=== PATIENT | female | born 1945 | race Caucasian/White ===

== ENCOUNTER → 2023-08-28 | Outpatient (CLI) | payer MEDICARE, BC, SELFPAY ==
[2023-08-28 12:40] LABS: Hematocrit 47.6 % (37-47); Hemoglobin 15.1 g/dL (12.0-15.0); Mean Corp Hgb Conc 31.7 g/dL (32-36); Mean Corpuscular Hgb 28.2 pg (27.0-32.0); Mean Platelet Vol. 10.8 fl (6.2-12.0); Platelet Count 384 K/mm3 (150-450); RBC Distribution Width CV 13.5 % (11.6-14.6); Red Blood Count 5.35 M/mm3 (4.2-5.4); White Blood Count 11.2 K/mm3 (4.4-11.0)
[2023-08-28 12:58] LABS: ALB/GLOB Ratio 0.9 RATIO (0.9-2.4); AST(SGOT) 34 U/L (15-37); Alanine Aminotransfer ALT/SGPT 39 U/L (13-56); Albumin, Serum 3.7 g/dL (3.2-5.0); Alkaline Phosphatase 111 U/L (45-117); Anion Gap 4 (5-15); BUN 14 mg/dL (7-18); BUN/Creat Ratio 19.2 RATIO (10-20); Calcium,Total 10.6 mg/dL (8.5-10.1); Chloride 107 mmol/L (98-107); Cholesterol 214 mg/dL (200); Creatinine, Serum 0.73 mg/dL (0.55-1.02); EST Glomerular Filtration Rate 81 mL/min (>60); Est Glom Filt Rate - Afr Amer 99 mL/min (>60); Globulin 4.1 g/dL (2.2-4.2); Glucose 95 mg/dL (74-106); High Density Lipoprotein 43 mg/dL; Protein, Total 7.8 g/dL (6.4-8.2); Sodium Level 139 mmol/L (136-145); Triglycerides 217 mg/dL; Very Low Density Lipoprotein 43 mg/dL (5-40)
== END | disposition home or self-care (01) ==
LOC: MTLAB 10:18
PROVIDERS: PCP Nurse Practitioner Family; Referring Provider Nurse Practitioner Family; Visit Provider Nurse Practitioner Family
DX: I10 Essential (primary) hypertension (principal); I77.1 Stricture of artery; E78.5 Hyperlipidemia, unspecified
CPT/HCPCS: 36415; 80053; 80061; 85027

== ENCOUNTER → 2023-11-06 | Outpatient (CLI) | payer MEDICARE, SELFPAY ==
[2023-11-06 13:20] LABS: Hemoglobin 11.4 g/dL (12.0-15.0)
== END | disposition home or self-care (01) ==
LOC: LAB 12:49
PROVIDERS: PCP Nurse Practitioner Family; Referring Provider Physician Assistant; Visit Provider Physician Assistant
DX: L97.514 Non-pressure chronic ulcer of other part of right foot with necrosis of bone (principal)
CPT/HCPCS: 36415; 85018

== ENCOUNTER 2023-11-16 13:46 | Outpatient (CLI) | payer MEDICARE, SELFPAY ==
--- NOTE | 2023-11-16 13:58 | VDLE_ITS ---
Reason For Study: Pre-Op BPG Mapping RIGHT LEFT GSV Prox Thigh - 0.27cm x 0.28cm GSV Prox Thigh - 0.26cm x 0.25cm GSV Mid Thigh - 0.24cm x 0.24cm GSV Mid Thigh - 0.30cm x 0.32cm GSV Dist Thigh - 0.36cm x 0.40cm GSV Dist Thigh - 0.29cm x 0.30cm GSV Knee - 0.38cm x 0.41cm GSV Knee - 0.20cm x 0.22cm GSV Prox Calf - 0.22cm x 0.25cm GSV Prox Calf - 0.29cm x 0.30cm GSV Mid Calf - 0.21cm x 0.24cm GSV Mid Calf - 0.11cm x 0.11cm GSV Dist Calf - 0.27cm x 0.35cm GSV Dist Calf - 0.10cm x 0.14cm ASV Prox Calf - 0.30cm x 0.32cm ASV Mid Calf - 0.27cm x 0.30cm ASV Mid Calf - 0.18cm x 0.20cm ASV Dist Calf - 0.28cm x 0.28cm SSV Prox Calf - 0.22cm x 0.22cm SSV Prox Calf - 0.14cm x 0.18cm SSV Mid Calf - 0.31cm x 0.34cm SSV Mid Calf - 0.14cm x 0.17cm SSV Dist Calf - 0.21cm x 0.23cm SSV Dist Calf - 0.17cm x 0.20cm GSV-SSV-ASV all appear patent and GSV-SSV-ASV all appear patent and compressible. compressible. VL/Saphenous Vein Mapping, Bilat Interpretation Summary Right great saphenous, accessory saphenous, and small saphenous veins patent wi th measurements above. Left great saphenous, accessory saphenous, and small saphenous veins patent wit h measurements above. Ordering Physician: Zoey Wong Referring Physician: Raudel Nance Performed By: Nuno Zhao RVT
--- NOTE | 2023-11-16 13:58 | ART_ITS ---
Reason For Study: RLE Ulcer Procedure A bilateral lower extremity continuous wave Doppler with analog waveform analysis,segmental pressures,and ankle brachial indexes without exercise. Left Segmental Pressures Left brachial= 150mmHg. Left thigh = 66mmHg. Left calf = 63mmHg. Left posterior tibial artery = 50mmHg. Left dorsalis pedis artery = 52mmHg. Left digit = 33 mmHg. The left posterior tibial artery waveforms are monophasic. The left dorsalis pedis waveforms are monophasic. Right Segmental Pressures Right brachial= 159mmHg. Right thigh = 105mmHg. Right calf = 70mmHg. Right posterior tibial artery = 76mmHg. Right dorsalis pedis artery = 69mmHg. No Pressure / Rt Toe Wound. The right posterior tibial artery waveforms are monophasic. The right dorsalis pedis waveforms are monophasic. Indices The right ankle brachial index by the posterior tibial artery is 0.48. The right ankle brachial index by the dorsalis pedis is 0.43. The left ankle brachial index by the posterior tibial artery is 0.31. The left ankle brachial index by the dorsalis pedis is 0.33. The left digital-brachial index is 0.21. VL/Lower Ext Art Exam w/o Exercis Interpretation Summary Right BRYNN 0.48, severe arterial insufficiency. Doppler/PVR waveforms and segmen flo pressures reveal [id number]-ixrac-cebhzcom femoral, distal SFA/popliteal disease. Left BRYNN 0.33, severe arterial insufficiency. Doppler/PVR waveforms and segment al pressures reveal lrurs-ctwdx-eajulptw femoral disease. Ordering Physician: Zoey Wong Referring Physician: Raudel Nance Performed By: Nuno Zhao RVT
--- NOTE | 2023-11-16 13:59 | CDU_ITS ---
Reason For Study: Bilateral Carotid Bruit Rt. Velocities/BP Lt. Velocities/BP Prox CCA 81.5/15.4 cm/sec. Prox CCA 76.0/21.2 cm/sec. Mid CCA 77.8/16.3 cm/sec. Mid CCA 76.0/21.2 cm/sec. Dist CCA 78.0/12.8 cm/sec. Dist CCA 53.5/18.5 cm/sec. Prox ICA 135.2/25.5 cm/sec. Prox ICA 83.1/20.4 cm/sec. Mid ICA 99.0/30.2 cm/sec. Mid ICA 125.3/37.6 cm/sec. Dist ICA 107.6/27.8 cm/sec. Dist ICA 123.5/30.3 cm/sec. Rt. ICA/CCA = 1.7. Lt. ICA/CCA = 1.6. Prox ECA 210.7/26.7 cm/sec. Prox ECA 434.5/86.4 cm/sec. Rt. Vert. 68.8/12.7 cm/sec. Lt. Vert. 179.6/31.9 cm/sec. Right Extracranial There is heterogeneous, irregular atherosclerotic plaque noted in the right common carotid artery. There is heterogeneous, irregular atherosclerotic plaque noted in the right internal carotid artery. There is heterogeneous, irregular atherosclerotic plaque noted in the right external carotid artery. Antegrade flow is noted in the right vertebral artery. Left Extracranial There is heterogeneous, irregular atherosclerotic plaque noted in the left common carotid artery. There is heterogeneous, irregular atherosclerotic plaque noted in the left internal carotid artery. There is heterogeneous, irregular atherosclerotic plaque noted in the left external carotid artery. Antegrade flow is noted in the left vertebral artery. The Doppler flow velocities are elevated in the left vertebral artery, suggesting stenosis. Procedure Carotid Duplex [id number]. This is a Carotid Duplex examination using B-mode, color flow and specral Doppler. The exam was diagnostic. Exam performed in department. VL/Carotid Duplex Ultrasound Interpretation Summary Moderate (50-69%) stenosis right extracranial internal carotid. Moderate (50-69%) stenosis left extracranial internal carotid. Patent and antegrade vertebrals bilaterally. Ordering Physician: Zoey Wong Referring Physician: Raudel Nance Performed By: Nuno Zhao RVT
== END 2023-11-16 23:59 | disposition home or self-care (01) ==
PROVIDERS: PCP Nurse Practitioner Family; Referring Provider Physician Assistant; Visit Provider Physician Assistant
DX: L97.514 Non-pressure chronic ulcer of other part of right foot with necrosis of bone (principal); R09.89 Other specified symptoms and signs involving the circulatory and respiratory systems; I77.9 Disorder of arteries and arterioles, unspecified; Z98.62 Peripheral vascular angioplasty status; M79.671 Pain in right foot
CPT/HCPCS: 93880; 93923; 93970

== ENCOUNTER → 2023-12-14 | Outpatient (CLI) | payer MEDICARE, SELFPAY ==
--- NOTE | 2023-12-14 08:46 | STRESSREP ---
Stress Test Report Date: 12/14/2023 Procedure: Pharmacologic stress nuclear imaging study Indications: Preop evaluation Consent: Per the patient Procedure: The patient underwent pharmacologic (Regadenoson 0.4mg ) evaluation with a peak heart rate of 90 beats per minute (64%predicted maximal heart rate) and a peak blood pressure of 110/60 mmHg. The baseline ECG demonstrated sinus rhythm. The peak pharmacologic ECG demonstrated no ischemic changes. Occasional PACs noted. [There was no complaint of chest discomfort during pharmacologic infusion or recovery]. The patient was injected with 11.2 millicuries of technetium 99m Cardiolite and subsequently rest SPECT Cardiolite nuclear imaging was obtained in the horizontal long, vertical long, and short axis views. The patient underwent pharmacologic (Regadenoson) evaluation. The patient was injected with 34.1 millicuries of technetium 99m Cardiolite and subsequently stress SPECT Cardiolite nuclear imaging was obtained in the horizontal long, vertical long, and short axis views. A gated Cardiolite study at peak stress was obtained. The examination was stopped secondary to completion of protocol. Rest and stress SPECT Cardiolite nuclear imaging status post realignment, normalization, and attenuation correction demonstrate no fixed or reversible perfusion defects. [There is end systolic thickening and brightening]. [The gated Cardiolite study demonstrates myocardial thickening and inward wall motion]. The reported LVEF is 80%. Impression: 1. Pharmacologic (Regadenoson) evaluation 2. Peak pharmacologic ECG with no ischemic changes. 3. No significant cardiac dysrhythmias noted. 5. [Rest and stress SPECT Cardiolite nuclear imaging demonstrate relative uniform tracer uptake and myocardial perfusion appearing within normal limits]. 6. The gated Cardiolite study reports an LVEF of 80%. This note was generated with [employer] software. It may contain incorrect words, spelling, and punctuation that were not noted in checking the note before signing.
== END | disposition home or self-care (01) ==
PROVIDERS: PCP Nurse Practitioner Family; Referring Provider Physician Assistant; Visit Provider Physician Assistant
DX: Z01.810 Encounter for preprocedural cardiovascular examination (principal); I70.235 Atherosclerosis of native arteries of right leg with ulceration of other part of foot; L97.514 Non-pressure chronic ulcer of other part of right foot with necrosis of bone; I77.9 Disorder of arteries and arterioles, unspecified
CPT/HCPCS: 78452; 93017; A9500; A4216; J2785

== ENCOUNTER 2024-01-14 12:16 | Inpatient (IN) | payer MEDICARE, SELFPAY ==
--- NOTE | 2024-01-10 10:19 | EKG12_ITS ---
Test Reason : PRE OP Blood Pressure : / mmHG Vent. Rate : 063 BPM Atrial Rate : 063 BPM P-R Int : 146 ms QRS Dur : 086 ms QT Int : 434 ms P-R-T Axes : 087 072 070 degrees QTc Int : 444 ms Normal sinus rhythm Normal ECG Confirmed by Moise Gonzalez ([id number]), editorial writer KATERIN RHODES ([id number]) on 01/14/2024 10:17:33 AM Referred By: Harris Saxena Confirmed By:Moise Gonzalez
[2024-01-10 11:38] LABS: Hematocrit 40.6 % (37-47); Hemoglobin 12.4 g/dL (12.0-15.0); Mean Corp Hgb Conc 30.5 g/dL (32-36); Mean Corpuscular Hgb 25.7 pg (27.0-32.0); Mean Corpuscular Volume 84.1 fL (81-99); Mean Platelet Vol. 11.6 fl (6.2-12.0); Platelet Count 329 K/mm3 (150-450); RBC Distribution Width CV 14.2 % (11.6-14.6); RBC Distribution Width SD 43.8 fl (35.1-43.9); Red Blood Count 4.83 M/mm3 (4.2-5.4); White Blood Count 7.8 K/mm3 (4.4-11.0)
[2024-01-10 12:03] LABS: Anion Gap 5 (5-15); BUN 14 mg/dL (7-18); BUN/Creat Ratio 21.3 RATIO (10-20); Calcium,Total 10.1 mg/dL (8.5-10.1); Chloride 110 mmol/L (98-107); Creatinine, Serum 0.66 mg/dL (0.55-1.02); EST Glomerular Filtration Rate 92 mL/min (>60); Est Glom Filt Rate - Afr Amer 111 mL/min (>60); Glucose 101 mg/dL (74-106); Potassium 3.5 mmol/L (3.5-5.1); Sodium Level 141 mmol/L (136-145)
[2024-01-11 08:27] LABS: Magnesium 2.3 mg/dL (1.6-2.6)
[2024-01-11 09:30] LABS: Hemoglobin A1c 5.9 % (3.8-5.6)
[2024-01-14] VITALS (25 sets, daily range): BP systolic 110–143; BP diastolic 45–99; PULSE 56–78; RESP 12–20; TEMP 36.1–36.6; O2SAT 95–100; BMI 15.6; BMI 16.0
--- NOTE | 2024-01-14 06:37 | PCM.PRE.AN2 ---
ASA Classification* ASA Classification ASA Classification: 3 Assessment & Plan Anesthesia* Anesthesia Assessment Anesthesia Assessment: Discussed sedation and/or anesthesia options, risks, benefits, and alternatives with patient/parents/legal guardian/POA. Questions invited. The patient/parents/legal guardian/POA seems to understand and agrees to proceed with anesthesia plan. Reviewed the physical assessment, medical history, allergy history and patient home medications list prior to surgery/procedure/anesthetic and documented any changes. Performed airway and anesthesia risk assessments. Anesthesia Type Anesthesia Type: General Anesthesia Focused Assessment* Airway Assessment Mouth opens: 2 cm Mallampati Score: II Focused Labs Anesthesia Preop lab: CBC WBC 7.8 K/mm3 (4.4-11.0) 01/10/24 10:37 RBC 4.83 M/mm3 (4.2-5.4) 01/10/24 10:37 Hgb 12.4 g/dL (12.0-15.0) 01/10/24 10:37 Hct 40.6 % (37-47) 01/10/24 10:37 Plt Count 329 K/mm3 (150-450) 01/10/24 10:37 CHEMISTRY Potassium 3.5 mmol/L (3.5-5.1) 01/10/24 10:37 Sodium 141 mmol/L (136-145) 01/10/24 10:37 Magnesium 2.3 mg/dL (1.6-2.6) 01/11/24 08:09 BUN 14 mg/dL (7-18) 01/10/24 10:37 Creatinine 0.66 mg/dL (0.55-1.02) 01/10/24 10:37 Glucose 101 mg/dL (74-106) 01/10/24 10:37 COAG Pre-Assessment Diagnosis/Proposed Procedure Planned Operative Procedure(s): RIGHT FEMEROL ENDARTERECTOMY FEM-POP BYPASS PER DR LOMAX RIGHT GREAT TOE AMPUTATION PER DR SHER Anesthesia History Anesthesia History - phlebotomy services representative: Anesthesia History - phlebotomy services representative Hx Hospitalization No 01/04/24 10:45 Any Problems With Anesthesia Yes: SLOW TO AWAKEN 01/04/24 10:45 Cholinesterase deficiency No 01/04/24 10:45 You/Your Family Experience No 01/04/24 10:45 fever (hyperthermia) with Relationship Recent Exposure to Contagious Disease Does patient have nerve No 01/04/24 10:45 stimulator Patient instructed to have device shut off --Does patient have Pacemaker or ICD? When Was Last Pacemaker Check QUESTION #4 FULL TEXT: You/Your Family Experience fever (hyperthermia) with Anesthesia Last Oral Intake Last Oral intake: Last Oral Intake NPO since Meds taken in AM with sips of water? Meds patient instructed to take am of surgery PONV PONV - phlebotomy services representative: PONV - phlebotomy services representative Female Yes 01/04/24 10:45 HX of Motion Sickness No 01/04/24 10:45 HX of N/V After Surgery No 01/04/24 10:45 Non-Smoker Yes 01/04/24 10:45 Duration of Surgery greater Yes 01/04/24 10:45 than 60 minutes Number of Risk Factors 3 01/04/24 10:45 PONV Score Moderate Risk 01/04/24 10:45 Respiratory Assessment Respiratory Assessment - phlebotomy services representative: Respiratory Tract Infection Hx - phlebotomy services representative Hx Respiratory Tract Infection No 01/04/24 10:45 STOP Sleep Apnea STOP Sleep Apnea - phlebotomy services representative: STOP Sleep Apnea - phlebotomy services representative Hx Hypertension No: PATIENT STATE 01/04/24 10:45 HYPOTENSION Hx Sleep Apnea No 01/04/24 10:45 CPAP BIPAP Do you snore loudly (louder No 01/04/24 10:45 than talking or can be heard Do you often feel tired/ Yes 01/04/24 10:45 fatigued/ sleepy during daytime? Has anyone observed you stop No 01/04/24 10:45 breathing during sleep? STOP Results Negative 01/04/24 10:45 QUESTION #5 FULL TEXT : Do you snore loudly (louder than talking or can be heard through closed doors)? 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 Specify any problems Hx of Preganancy in last 3 No 01/04/24 10:45 Months Nurse Filling Out Transfusion DSCHRIBER 01/04/24 10:45 & Questions: Date: 01/04/24 01/04/24 10:45 Time: 10:48 01/04/24 10:45 Patient unable to answer at this time (ie. confused, unrespo /Reproduction History /Reproductive History - phlebotomy services representative: /Reproductive Hx- phlebotomy services representative Hx Now No 01/04/24 10:45 Gestational Age (in weeks): EDC: Hx Hx Para Hx Section SAB No 01/04/24 10:45 Active Medications Active Medications: Current Medications Generic Name Dose Route Start Last Admin Trade Name Freq PRN Reason Stop Dose Admin Cefazolin Sodium 2 gm/ Sodium 110 mls @ 150 mls/hr 01/14/24 07:30 Chloride IV 01/14/24 08:13 PREOP ONE Magnesium Sulfate 1 gm/ 102 mls @ 408 mls/hr 01/14/24 07:30 Dextrose IV 01/14/24 07:44 X1 ONE [facility] Medical History Wears glasses Post-menopausal Blackout Former smoker Leg cramps History of stress test Breast CA (~2003) Home Medications ?Medication ?Instructions ?Recorded ?Last Taken ?Type aspirin 81 mg tablet,delayed 81 mg PO DAILY HEART HEALTH 11/05/23 01/14/24 03:00 History release clopidogrel 75 mg tablet (Plavix) 75 mg PO DAILY BLOOD THINNER 11/05/23 01/14/24 03:00 History ramipril 5 mg tablet 5 mg PO 1545 BP 11/05/23 01/13/24 History rosuvastatin 5 mg tablet 5 mg PO 1545 CHOLESTEROL 11/05/23 01/13/24 History Allergy/AdvReac Type Severity Reaction Status Date / Time Sulfa (Sulfonamide Allergy Severe Swelling Verified 01/14/24 06:14 Antibiotics) (sulfa drugs) Family History Other Cancer Heart disease Surgical History Hx of colonoscopy Hx of tubal ligation History of lumpectomy of left breast Hx of cholecystectomy Social History Smoking Status: Former smoker Tobacco: How many years used: 35 Review of Systems (Anesthesia) ROS Narrative System reviewed and no additional complaints, except as documented.
[2024-01-14] MEDS: Lactated Ringers 1,000 ML 15 ML IV (06:52)
[2024-01-14] MEDS: Magnesium 1 GM over 15 mins IV (07:04)
--- NOTE | 2024-01-14 07:10 | HP.PCM_ITS ---
HPI - General General Date of Admission: 01/14/24 Date of Service: 01/14/24 Chief Complaint: Right hallux osteomyelitis HPI Narrative VAUGHN CLINE, is a 78 F who presents to [facility] for surgery consisting of incision of bone cortex with advancement flap closure secondary to osteomyelitis to the right hallux. Patient also be seen by vascular surgery for intervention to the right lower extremity due to peripheral vascular disease and blockage in her primary arteries to the lower extremity. Patient has been cleared by her medical doctor as well as understands the risk and benefits wound forward with elective surgery to the right lower extremity. Patient denies any trauma. She denies constitutional symptoms. No other pedal complaints at this time. [facility] Medical History Wears glasses Post-menopausal Blackout Former smoker Leg cramps History of stress test Breast CA (~2003) Home Medications ?Medication ?Instructions ?Recorded ?Last Taken ?Type aspirin 81 mg tablet,delayed 81 mg PO DAILY HEART HEALTH 11/05/23 01/14/24 03:00 History release clopidogrel 75 mg tablet (Plavix) 75 mg PO DAILY BLOOD THINNER 11/05/23 01/14/24 03:00 History ramipril 5 mg tablet 5 mg PO 1545 BP 11/05/23 01/13/24 History rosuvastatin 5 mg tablet 5 mg PO 1545 CHOLESTEROL 11/05/23 01/13/24 History Allergy/AdvReac Type Severity Reaction Status Date / Time Sulfa (Sulfonamide Allergy Severe Swelling Verified 01/14/24 06:14 Antibiotics) (sulfa drugs) Family History Other Cancer Heart disease Surgical History Hx of colonoscopy Hx of tubal ligation History of lumpectomy of left breast Hx of cholecystectomy Social History Smoking Status: Former smoker Tobacco: How many years used: 35 Vital Signs Vital Signs Vital Signs: 01/14/24 06:10 01/14/24 06:10 Temperature 97 F L Temperature Source Temporal Pulse Rate 78 Respiratory Rate 16 Respiratory Pattern Normal Blood Pressure 131/50 H Blood Pressure Mean 77 Blood Pressure Source Monitor Blood Pressure Position Semi-Fowlers Blood Pressure Location Right Arm Pulse Ox 100 Oxygen Delivery Method Room Air Weight Weight: 44 kg Body Mass Index (BMI) 15.6 Physical Exam Narrative Vascular: DP and PT pulses right lower extremity are faintly palpable. Capillary refill time is brisk. Skin temp great is warm to cool from proximal ankle to distal digits right lower extremity. Nonpitting edema appreciated right lower extremity. Neurological. Light touch intact. Patient was found to painful stimuli. Dermatological: Full-thickness wound down to bone to the right hallux nail bed. No drainage or malodor. Musculoskeletal: Muscle joint 5 and 5 in all quadrants right lower extremity. Pain on palpation to the right hallux. No pain with calf pressure. 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 All findings were discussed with the patient. All questions were answered to the patient's satisfaction. Patient shows evidence of nonhealing wound to the right hallux with exposed bone with concerns of osteomyelitis. Patient is cleared from podiatry perspective to move forward with elective incision of bone cortex with advancement flap closure to the right hallux, right lower extremity. Patient understands all risk and benefits. Patient will also be seen by vascular surgery for intervention to the right lower extremity. Plan for admission after surgery will be up to vascular surgery. Podiatry will follow if the patient is admitted. After surgery the right lower extremity foot dressing is to remain clean dry and intact and do not remove do not get it wet. Please contact Dr. Taylor with any questions or concerns. (2) Chronic osteomyelitis with draining sinus, right ankle and foot:
[2024-01-14 07:14] LABS: Bedside Glucose 70 mg/dL (74-106)
--- NOTE | 2024-01-14 07:30 | BON_PTH ---
PATIENT: VAUGHN CLINE LOC: [facility] U#:[id number] AGE/SX: 78/F ROOM: [facility]08 RE01/14/[address]: Dr. Harris Saxena MD : [id number] BED: 1 DIS: 01/15/2024 SPEC #: [id number] RECD: 01/15/24 08:51 STATUS: LEROY RECain #: [id number] JONEL: 01/14/24 07:[address]: Harris Saxena DEPT: SURGICAL PATHOLOGY RECD BY: Asuncion Corona ENTERED: 01/15/24 10:46 SP TYPE: Bone OTHR DR: Dr. 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 Bone cortex right foot, excisional biopsy: A piece of bone with marked reactive changes. Negative for acute osteomyelitis. B. Plaque, endarterectomy: Atherosclerotic tissue with moderate calcifications (plaque). 01/17/2024 MICROSCOPIC DESCRIPTION Slides are reviewed. GROSS DESCRIPTION A. Received in fixative is one container labeled with the patient's name and designated Incision bone cortex right foot. The specimen consists of a piece of bone measuring 1.5 x 0.6 x 0.5cm. The entire specimen is submitted in one cassette after decalcification. B. Received in fixative is one container labeled with the patient's name and designated Plaque. The specimen consists of an elongated piece of landeros indurated tissue measuring 2.0 x 0.5 x 0.4cm. Also present are multiple pieces of landeros indurated tissue measuring in aggregate 1.5 x 0.5 x 0.3cm. The specimen cuts with a gritty sensation. The entire specimen is submitted in one cassette after decalcification. REBALu 01/15/2024 TC:5 CPT:56713,50553
--- NOTE | 2024-01-14 07:31 | PCM.HP.STD ---
[facility] - General General Date of Admission: 01/14/24 Chief Complaint: Right hallux osteomyelitis HPI Narrative VAUGHN CLINE, is a 78 F who presents with right lower extremity atherosclerosis with gangrene, prior right iliac/femoral intervention at outside facility. She has chronic SFA/popliteal occlusion and perfusion that may not be sufficient to heal planned amputation. [facility] Medical History Wears glasses Post-menopausal Blackout Former smoker Leg cramps History of stress test Breast CA (~2003) Home Medications ?Medication ?Instructions ?Recorded ?Last Taken ?Type aspirin 81 mg tablet,delayed 81 mg PO DAILY HEART HEALTH 11/05/23 01/14/24 03:00 History release clopidogrel 75 mg tablet (Plavix) 75 mg PO DAILY BLOOD THINNER 11/05/23 01/14/24 03:00 History ramipril 5 mg tablet 5 mg PO 1545 BP 11/05/23 01/13/24 History rosuvastatin 5 mg tablet 5 mg PO 1545 CHOLESTEROL 11/05/23 01/13/24 History Allergy/AdvReac Type Severity Reaction Status Date / Time Sulfa (Sulfonamide Allergy Severe Swelling Verified 01/14/24 06:14 Antibiotics) (sulfa drugs) Family History Other Cancer Heart disease Surgical History Hx of colonoscopy Hx of tubal ligation History of lumpectomy of left breast Hx of cholecystectomy Social History Smoking Status: Former smoker Tobacco: How many years used: 35 ROS Constitutional Constitutional: Denies chills, fever(s), frequent falls, lethargy or weakness Eyes Eyes: Denies blind spots, change in vision or loss of vision ENT HEENT: Denies bleeding gums, hoarseness or sore throat Cardiovascular Cardiovascular: Denies abdominal pain, bluish discoloration of hand/feet, chest pain with activity, claudication, cold extremities, cyanosis, dyspnea on exertion, erythema on extremities, irregular heart rhythm, leg edema, leg ulcers, numbness in extremities or weakness in extremities Respiratory/Chest Respiratory/Chest: Denies cough, excessive phlegm production, shortness of breath at rest, shortness of breath with exertion or wheezing Gastrointestinal Gastrointestinal: Denies anorexia, change in stool character, constipation, diarrhea, melena or rectal bleeding Genitourinary Genitourinary: Denies dysuria or hematuria Musculoskeletal Musculoskeletal: Denies abnormal gait Integumentary Integumentary: Reports other Details: ; Denies erythema, non-healing lesions or wounds Neurologic Neurologic: Denies abnormal speech, focal weakness, headache(s), loss of vision, numbness, paresthesias or sensory deficit Hematologic/Lymphatic Hematologic/Lymphatic: Denies easy bleeding, easy bruising or lymphadenopathy Vital Signs Vital Signs Vital Signs: 01/14/24 06:10 01/14/24 06:10 Temperature 97 F L Temperature Source Temporal Pulse Rate 78 Respiratory Rate 16 Respiratory Pattern Normal Blood Pressure 131/50 H Blood Pressure Mean 77 Blood Pressure Source Monitor Blood Pressure Position Semi-Fowlers Blood Pressure Location Right Arm Pulse Ox 100 Oxygen Delivery Method Room Air Weight Weight: 97 lb 0.054 oz Body Mass Index (BMI) 15.6 Physical Exam Const alert, oriented x3, no apparent distress and healthy appearing General Appearance: cooperative; Negative for combative or lethargic Orientation / Consciousness: awake Exam Limitations: no limitations HEENT Head and Scalp: normocephalic and atraumatic Eyes EOMs intact bilaterally General Eye: normal appearance of both eyes Neck full ROM and thyroid normal General: trachea midline; Negative for lymphadenopathy or tenderness Thyroid: thyroid normal Resp normal respiratory effort and no use of accessory muscles Effort and Inspection: Negative for labored, stridor or audible wheezes Cardio regular rate and regular rhythm Back/Spine Cervical Spine: cervical ROM normal Extremity full ROM, normal capillary refill and no clubbing, cyanosis or edema Skin no rashes or lesions noted and no wounds Neuro oriented x3, CN's II-XII intact bilaterally, no focal motor deficits and no sensory deficits noted Psych thought process normal, cooperative, affect normal, speech normal and activity/motor behavior normal Results Lab / Micro Data 01/10/24 10:37 01/10/24 10:37 Labs: Laboratory Results - last 24 hr 01/14/24 06:32: POC Glucose 70 L Assessment & Plan Assessment/Plan (1) Atherosclerosis of [place] arteries of right leg with ulceration of other part of foot: PLAN: -plan right fem-pop with cadaver, sartorius
--- NOTE | 2024-01-14 07:32 | OP.PCM_ITS ---
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 Osteomyelitis, right hallux 2. Full-thickness ulceration down to bone, right hallux Post-Operative Diagnosis: Same as preoperative diagnosis Surgery/Procedure Performed:: 1. Incision bone cortex, right hallux 2. Advancement flap closure, right hallux Description of Surgical Findings:: 1. Evidence of periosteal action to the distal tuft of the distal phalanx right hallux. 2. Capillary refill time less than 3 seconds to the right hallux stump. Surgeon: Derek Taylor reed press feeder: None Type of Anesthesia: General and Local Anesthesiologist: Steven Mendosa Special Medications: Per anesthesia Specimen's removed: 1. Distal phalanx right hallux half to microbiology, half to pathology Drains: None Estimated Blood Loss (mL): 10 mL Fluids Replaced: Per anesthesia Description of Procedure: Indications For Operation: Mrs. Mitcehll is a 78-year-old female who was admitted to [facility] for elective surgery to the right hallux for concerns of worsening osteomyelitis and nonhealing ulceration. Patient also be seen by vascular surgeon for intervention to the right lower extremity secondary to decreased perfusion as seen on CTA. All risk and benefits were discussed with the patient great detail prior to surgery. Chart review consent signed. H&P and chart. Due to nonhealing wound to right hallux and concern for bone infection, it had deemed necessary at this time to take patient operating room to perform incision bone cortex with [place] flap closure to the right hallux, then team approach with vascular surgery intervention to right lower extremity. The nature of the problem, anticipated procedures, postop recovery/convalences and risk/complications include but not limited to infection, wound healing complications, digital amputation, hypertrophic scarring, numbness, tingling, chronic pain, CRPS, over and under correction, recurrence of deformity, DVT and or PE and the need for further surgery have been discussed in great detail with the patient. All questions have been answered to the patient's satisfaction. There are no guarantees given as to the outcome of the procedure. Description of Procedure: Under mild sedation, the patient was brought into the operating room and placed on the operating table in supine position. Once the patient was under general anesthesia with [place] mask airway, the right lower extremity was blocked using approximately 17 cc0.5% Marcaine plain. Next, a well-padded calf tourniquet was applied to the right lower extremity. Next, the right lower extremity was prepped and draped in normal aseptic manner. Next, a timeout was then undertaken verifying the correct patient, extremity, visibility of preoperative markings, availability of the equipment. Next, attention was directed to the right lower extremity. Using a 4 inches Esmarch, right lower extremity was exsanguinated and elevated to 60 degrees for 1 minute. Procedure #1: Incision of bone cortex, right hallux Next, attention was directed to the level of the right hallux the right lower extremity. Using a sterile skin marker a fish[place] trapdoor incision was marked out around the toenail that showed evidence of a full-thickness wound down to bone. There is no evidence of gross purulent drainage appreciated. Next, using a #15 blade full-thickness incision down to bone was performed along the incision marker. Care was taken to lift up with the soft tissue to remove it sharply against the distal phalanx. Upon removing all the soft tissue there showed evidence of p.o. reaction appreciated to the distal tuft of the right hallux. Next, incision bone cortex was performed removing the distal phalanx of the right hallux. The distal phalanx was evaluated that showed evidence of periosteal reaction and softening. Using a bone cutter half of the bone was removed to be sent to microbiology for culture and sensitivity, the other half was sent off to pathology for gross dissection. Next, the incision/amputation was flushed with copious hector of warm saline. At this time the right calf tourniquet was deflated and reperfusion was noted to the right lower extremity. Procedure #2: Advancement flap closure, right hallux Next, attention was directed to the incision and bone deficit. The surrounding tissue was undermined to allow for advancement flap closure. Using 4-0 Monocryl, the deep tissue was advanced and closed with buried suture technique. The skin was reapproximated and closed using 4-0 nylon in simple interrupted suture technique. Capillary refill time was tested at the distal tuft and showed evidence of less than 3 seconds in refill time. The right lower extremities were cleaned and patted dry. The incision was dressed temporarily with Betadine soaked Adaptic, 4 x 4's and Coban wrap. After completion of the right lower extremity vascular intervention the right hallux will be dressed with Betadine soaked Adaptic, 4 x 4's, Kerlix wrap, single-layer cast padding and one 4 inch Adan wrap from sulcus of toes to mid calf. The patient tolerated the procedure and anesthesia well and apparent satisfactory condition and was transported to the PACU for further monitoring prior to discharge ICU after vascular surgery for monitoring. Vital signs stable and vascular status intact to all digits bilateral. Post Operative Plan: Weightbearing: Partial weightbearing to right heel with surgical shoe. Full weightbearing left lower extremity. Antibiotics: 2 g Ancef through the IV DVT Prophylaxis: Per vascular surgery Busch: None Dressing: Betadine soaked Adaptic, 4 x 4's, Kerlix, single layer Starks compression bandage X-Rays: Post-operative films taken on the operating room. Pain Medication: Percocet 5/325 Follow-up: Patient will follow-up with Dr. Taylor in private office 1 week post discharge from hospital. Grafts/Implants Used: None Admit VTE Documentation VTE Present on Admission: No VTE Mechan Device Prophylaxis: SCD's VTE Pharm Prophylaxis ordered?: Yes
[2024-01-14] MEDS: Cefazolin 2 GM in 0.9% Normal Saline (100mL Bag) 100 ML IV (07:36)
--- NOTE | 2024-01-14 07:44 | RAD_ITS ---
STUDY: X-RAY - RIGHT FOOT CLINICAL: Female, 78 years old. INCISION BONE CORTEX RIGHT HALLUX -- MINI C TECHNIQUE: A fluoroscopic spot film of the right forefoot was obtained. COMPARISON: None. FINDINGS: Normal visualized metatarsi. Normal metatarsophalangeal joint of the great toe. Normal proximal phalanx of the great toe. There is amputation of the distal phalanx of the great toe at the level of the interphalangeal joint. Normal second through fifth metatarsophalangeal joints. Normal interphalangeal joints and phalanges of the lesser toes. There is mild soft tissue swelling of the great toe stump. RAD/Foot 2 Views IMPRESSION: Amputation of the distal phalanx of the great toe at the level of the interphalangeal joint. Mild soft tissue swelling of the great toe stump. Electronically Signed: Catalino Solomon MD at 8:50 EDT ,
[2024-01-14] MEDS: Heparin 10,000 UNITS/10 ML Vial 10000 UNITS (07:57)
[2024-01-14] MEDS: Bupivacaine Mpf 0.5% 30 ML VIAL (07:57)
[2024-01-14 08:29] LABS: International Normalized Ratio 1.1; Prothrombin Time (Protime)PT. 14.1 SECONDS (11.7-14.9)
[2024-01-14 08:31] LABS: Partial Thromboplast Time 28.2 Seconds (24.1-36.2)
[2024-01-14] MEDS: Heparin Injection (Vial) 5,000 UNIT/ML VIAL 5000 UNIT (08:41)
--- NOTE | 2024-01-14 12:21 | OP.PCM_ITS ---
Report of Operation Date of Procedure: 01/14/24 Pre-Operative Diagnosis: atherosclerosis with gangrene right lower extremity Post-Operative Diagnosis: same Surgery/Procedure Performed:: right common femoral endarterectomy right femoral-popliteal bypass with cadaver GSV Surgeon: Harris Saxena Type of Anesthesia: General Estimated Blood Loss (mL): 50 Description of Procedure: HPI: Patient is a 28-year-old female with atherosclerosis and gangrene of the right lower extremity. She previously underwent right iliac artery intervention outside facility which significantly improved her perfusion however she went on to develop a gangrenous right great toe. In order to ensure adequate perfusion for healing of a planned toe amputation she presents now for combined right femoral popliteal bypass along with toe amputation. Description of procedure: Upon obtaining form consent and verification correct patient procedure site patient was taken to the operating where she was placed under general anesthesia. Dr. Taylor performed timeout and this portion of the procedure and upon completion the patient was re-prepped and draped in usual sterile fashion and timeout for the bypass procedure performed. Oblique incision was made over the right common femoral artery and Bovie electrocautery was dissect down through the subcutaneous tissue and self-retaining retractors p ut in position. Further dissection was carried down to the femoral sheath which was then incised vertically exposing the common femoral artery. Sharp dissection was used dissect free proximally above the inguinal ligament to the distal external iliac artery and a right angle was replaced vessel loop. The dissection then carried distally down on the origin of the superficial femoral artery and the profundofemoral artery and a right angle was placed Vesseloops around each of these individually. Next longitudinal incision made on the medial aspect of the calf 2 fingerbreadths medial to the tibia. Bovie electrocautery used to dissect down through subcutaneous tissue to level the fascia and the fascia was then incised and self-retaining retractor put in position. Combination of Bovie and blunt dissection was then used to dissect to the popliteal space once the popliteal vessels were visualized sharp dissection used dissect free the distal popliteal artery down onto the tibioperoneal trunk and anterior tibial artery origins. Vessels were then circumferentially dissected free and a right angle replaced vessel loop on the proximal popliteal artery and around the TP trunk and anterior tibial artery individually. A tunneler was then used from the popliteal incision to the femoral incision and the patient was then heparinized and allowed circulate for 3 minutes. There is significant amount of plaque and disease in the common femoral artery which we felt would likely require an endarterectomy. Vessels were then occluded with Vesseloops and longitudinal arteriotomy created with 11 blade and extended with Jim scissors. There was in fact significant posterior plaque with significant luminal narrowing so an endarterectomy was warranted so a modifier 22 was applied for the additional operative time of approximately 1 hour. We then performed endarterectomy with a freer elevator with satisfactory endpoint distally down to the origin of the profundofemoral artery and proximal at the distal external iliac artery. A bovine pericardial patch was then secured in position using 5-0 Prolene in running fashion. After completing suture line vessels were released and satisfactory stasis was noted. Cadaver saphenous vein was then thawed per spindle carver's instructions and flushed to assess for sidebranch integrity. The common femoral artery was then occluded and longitu dinal arteriotomy created and the patch and extended with Jim scissors. The vein was then oriented in reverse fashion and beveled to match the arteriotomy. Anastomosis was then performed using 6-0 Prolene in running fashion. After completing the suture line vessels were flushed into the graft and then clamps removed. Satisfactory stasis was noted and there is brisk pulsatile flow through the bypass conduit. The vein was then marked to maintain orientation and secured to the tunneler and pulled through the popliteal incision. The popliteal artery was then occluded with Vesseloops and longitudinal arteriotomy created 11 blade extended with Jim scissors down onto the proximal portion of the tibioperoneal trunk. There was some palpable plaque at the distal popliteal artery which was concerning for possible significant stenosis however this did not appear to be so once the vessel was opened. The vein was then cut the length and beveled to match the arteriotomy and anastomosis performed using a 6- 0 Prolene in a running fashion. Prior to clean the suture line vessels were backbled and after completing suture line clamps removed and satisfactory stasis was noted. There is a palpable pulse in the graft and across the anastomosis primarily into the anterior tibial artery which is dominant outflow. Heparin was then reversed with protamine and the incision inspected hemostasis. Attention was then turned to the sartorius muscle which was dissected free with Bovie up to the insertion into the anterior superior iliac spine and along its lateral edge. The insertion was then divided between the muscle reflected medially to cover the common femoral artery, patch, and proximal anastomosis. This was then secured in position using a 2-0 Vicryl and the incision closed with 3-0 Vicryl, 4 Monocryl and Dermabond for the skin. The distal incision was then closed with 2-0 Vicryl, 3-0 Vicryl, 4-0 Monocryl and Dermabond. The patient was then taken the recovery with anticipated mission to the intensive care unit for hemodynamic and neurologic monitoring.
--- NOTE | 2024-01-14 12:42 | PCM.POST.ANE ---
Anesthesia: Postop Eval I Current Vital Signs Temperature: 98 F Pulse Rate: 68 Blood Pressure: 136/62 Respiratory Rate: 16 Pulse Ox: 99 Oxygen Delivery Method: Room Air Assessment Airway patent: Yes Spontaneous unlabored respirations: Yes Mental status: Awake and Calm nausea: No Vomiting: No Anesthesia Complication: No Fluid Hydration Crystalloid volume administer (ml): 2,000 Total IV fluid infused: 2,000 Progress Note Anesthesia document: Postop Eval 1 completed: Yes
[2024-01-14] MEDS: 0.45% Normal Saline 1,000 ML 100 ML IV (14:59)
[2024-01-14] MEDS: Acetaminophen 500 MG Tablet 1000 MG PO ×2 (15:02→20:56)
[2024-01-14] MEDS: Cefazolin 1 GM/50 ML BAG IV ×2 (15:20→23:45)
[2024-01-14] MEDS: Atorvastatin Calcium 10 MG Tablet PO (15:23)
[2024-01-14] MEDS: Ramipril 5 MG Capsule PO (15:23)
--- NOTE | 2024-01-14 15:58 | POSTOPAN2_ITS ---
Anesthesia Postop Eval I Sum Postop Eval Completion status Anesthesia document: Postop Eval 1 completed: Yes Anesthesia Postop Eval I Summary Anesthesia Postop Eval I Summary: Anesthesia Postop Eval I: Assessment Summary Airway patent Yes 01/14/24 12:43 [email or web address] [email or web address] [email or web address] Spontaneous unlabored Yes 01/14/24 12:43 WINDOW [email or web address] [email or web address] respirations Mental status Awake,Calm 01/14/24 12:43 WINDOW [email or web address] [email or web address] nausea No 01/14/24 12:43 WINDOW SHADE [email or web address] Vomiting No 01/14/24 12:43 WINDOW [email or web address] [email or web address] Anesthesia Postop Eval I: Fluid Summary Crystalloid volume administer 2,000 01/14/24 12:43 WINDOW [email or web address] [email or web address] (ml) Colloids volume administered ( ml) Blood Product volume administered (ml) Total IV fluid infused 2,000 01/14/24 12:43 WINDOW SHADE [email or web address] Anesthesia Postop Eval I: Summary Notes Anesthesia Complication No 01/14/24 12:43 WINDOW SHADE [email or web address].SEAN Anesthesia Complication Comment: Post-operative progress note Anesthesia: Postop Eval II Evaluation Mental status: Awake and Calm Pain Level: 1 nausea: No Vomiting: No Complications Anesthesia Complication: No
--- NOTE | 2024-01-14 15:58 | PCM.POSTANE2 ---
Anesthesia Postop Eval I Sum Postop Eval Completion status Anesthesia document: Postop Eval 1 completed: Yes Anesthesia Postop Eval I Summary Anesthesia Postop Eval I Summary: Anesthesia Postop Eval I: Assessment Summary Airway patent Yes 01/14/24 12:43 [email or web address] [email or web address] Spontaneous unlabored Yes 01/14/24 12:43 FAMILY [email or web address] respirations Mental status Awake,Calm 01/14/24 12:43 FAMILY [email or web address] nausea No 01/14/24 12:43 FAMILY NURSE.[email or web address] Vomiting No 01/14/24 12:43 FAMILY [email or web address] Anesthesia Postop Eval I: Fluid Summary Crystalloid volume administer 2,000 01/14/24 12:43 [email or web address] (ml) Colloids volume administered ( ml) Blood Product volume administered (ml) Total IV fluid infused 2,000 01/14/24 12:43 FAMILY [email or web address] Anesthesia Postop Eval I: Summary Notes Anesthesia Complication No 01/14/24 12:43 FAMILY [email or web address].SEAN Anesthesia Complication Comment: Post-operative progress note Anesthesia: Postop Eval II Evaluation Mental status: Awake and Calm Pain Level: 1 nausea: No Vomiting: No Complications Anesthesia Complication: No
[2024-01-14 18:38] LABS: Absolute Lymphocyte Count 0.89 X10^3/uL (0.83-4.51); Basophil# 0.05 X10^3/uL; Basophil% 0.3 % (0-1); Hematocrit 34.6 % (37-47); Hemoglobin 10.8 g/dL (12.0-15.0); Lymphocyte # 0.89 X10^3/ul (0.83-4.51); Lymphocyte % 5.1 % (19-41); Mean Corp Hgb Conc 31.2 g/dL (32-36); Mean Corpuscular Hgb 26.2 pg (27.0-32.0); Mean Platelet Vol. 11.4 fl (6.2-12.0); Monocyte# 0.45 X10^3/uL; Monocyte% 2.6 % (0-10); NRBC Flagged by Analyzer 0 % (0-5); Neutrophil # 15.98 X10^3/uL (2.7-7.7); Neutrophil % 91.5 % (47-70); Platelet Count 295 K/mm3 (150-450); RBC Distribution Width CV 14.3 % (11.6-14.6); RBC Distribution Width SD 43.6 fl (35.1-43.9); Red Blood Count 4.12 M/mm3 (4.2-5.4); White Blood Count 17.5 K/mm3 (4.4-11.0)
[2024-01-14] MEDS: HEPARIN/D5w 25,000 UNITS 25,000 UNITS/250 ML IV.SOLN. 3 UNITS CONT INF (18:41)
[2024-01-15] VITALS (18 sets, daily range): BP systolic 100–156; BP diastolic 45–69; PULSE 57–73; RESP 12–25; TEMP 36.3–36.9; O2SAT 94–98; BMI 16.4
[2024-01-15] MEDS: 0.45% Normal Saline 1,000 ML 100 ML IV ×2 (00:58→10:35)
[2024-01-15 03:29] LABS: Absolute Lymphocyte Count 1.36 X10^3/uL (0.83-4.51); Absolute Neutrophil Count 13.2 X10^3/uL (2.0-7.7); Basophil# 0.04 X10^3/uL; Basophil% 0.3 % (0-1); Hematocrit 32.2 % (37-47); Hemoglobin 9.9 g/dL (12.0-15.0); Lymphocyte # 1.36 X10^3/ul (0.83-4.51); Lymphocyte % 8.6 % (19-41); Mean Corp Hgb Conc 30.7 g/dL (32-36); Mean Corpuscular Hgb 25.8 pg (27.0-32.0); Mean Corpuscular Volume 83.9 fL (81-99); Mean Platelet Vol. 11.5 fl (6.2-12.0); Monocyte# 1.11 X10^3/uL; NRBC Flagged by Analyzer 0 % (0-5); Neutrophil % 83.5 % (47-70); Platelet Count 268 K/mm3 (150-450); RBC Distribution Width CV 14.3 % (11.6-14.6); RBC Distribution Width SD 43.7 fl (35.1-43.9); Red Blood Count 3.84 M/mm3 (4.2-5.4); White Blood Count 15.8 K/mm3 (4.4-11.0)
[2024-01-15 03:44] LABS: Anion Gap 5 (5-15); BUN 12 mg/dL (7-18); BUN/Creat Ratio 18.6 RATIO (10-20); Calcium,Total 9.6 mg/dL (8.5-10.1); Chloride 111 mmol/L (98-107); Creatinine, Serum 0.64 mg/dL (0.55-1.02); EST Glomerular Filtration Rate 94 mL/min (>60); Est Glom Filt Rate - Afr Amer 114 mL/min (>60); Glucose 129 mg/dL (74-106); Potassium 4.3 mmol/L (3.5-5.1); Sodium Level 140 mmol/L (136-145)
[2024-01-15] MEDS: Acetaminophen 500 MG Tablet 1000 MG PO ×2 (05:33→14:50)
--- NOTE | 2024-01-15 10:07 | CASEMGMT ---
MARA OLGUIN Assessment Face to Face with patient for initial transition planning/care coordination assessment. MARA OLGUIN introduced self and role at [facility], pt voices understanding. Pt is A&Ox4 and is resting comfortably in bed and is calm. Care providers, pharmacy, and demographics verified. Admitting dx: Right Femoral Endarterectomy LACE Strata: 1 PCP: Raudel Nance Specialists: Hemanth (Vascular), Brandon(Podiatry) Preferred Pharmacy: [facility] Insurance: [employer] [facility] Prescription Benefit: Yes LNOK: Mao Mitchell (son) Living Arrangements: Pt lives alone in a single story farm home with one step to enter. Pt states that his son and GD live on the same farm ADLs/IADLs: Reports ind at baseline Transportation: Self, Son, GD DME: [facility] [place]. Pt currently has a wound vac on HHC/SNF: Denies History or needs Pt?s goal: Home Plan: Anticipate home with HHC. Pt refuses SNF. 6-Click=18. PT is pending. Pt is to f/u with Dr. Taylor and Dr. Saxena one and two weeks after DC. Pt states that she may be interested in HHC, but wants to wait and see how she progresses in the hospital first. CM to follow. Carlos Lau RN, CM
[2024-01-15] MEDS: Clopidogrel Bisulfate 75 MG Tablet PO (10:35)
[2024-01-15] MEDS: Aspirin E.C. 81 MG Tablet PO (10:35)
--- NOTE | 2024-01-15 13:37 | PN.SURG_ITS ---
Subjective Subjective Doing well, pain controlled, eager to get moving/home. Objective Data Objective Data A&O x 3, NAD RRR Resp non labored RLE dressing/wrap intact, biphasic AT/PT above digits with normal capillary refill Vital Signs: Vital Signs Temp Pulse Resp BP Pulse Ox O2 Del Method O2 Flow Rate 98.2 F 62 21 H 131/50 H 98 Room Air 2 01/15/24 10:00 01/15/24 11:00 01/15/24 11:00 01/15/24 11:00 01/15/24 11:00 01/15/24 11:00 01/14/24 13:30 Oxygen Flow Rate (L/min) 2 Oxygen Delivery Method Room Air Weight: 100 lb 1.438 oz Body Mass Index (BMI) 16.4 Intake & Output: Intake and Output for Last 24 Hours 01/13/24 01/14/24 01/15/24 23:59 23:59 23:59 Intake Total 3502 / 3502 1876.67 / 1876.67 Output Total 600 / 600 Balance 2902 / 2902 1876.67 / 1876.67 Lab / Micro Data 01/15/24 03:20 01/15/24 03:20 Labs: Laboratory Results - last 24 hr 01/14/24 18:30: WBC 17.5 H, RBC 4.12 L, Hgb 10.8 L, Hct 34.6 L, MCV 84.0, MCH 26.2 L, MCHC 31.2 L, RDW Std Deviation 43.6, RDW Coeff of Rosa [place] 14.3, Plt Count 295, MPV 11.4, Immature Gran % (Auto) 0.500, Neut % (Auto) 91.5 H, Lymph % (Auto) 5.1 L, [place] % (Auto) 2.6, Eos % (Auto) 0.0, Baso % (Auto) 0.3, Absolute Neuts (auto) 16.0 H, Absolute Lymphs (auto) 0.89, Nucleated RBC % 0 01/15/24 03:20: WBC 15.8 H, RBC 3.84 L, Hgb 9.9 L, Hct 32.2 L, MCV 83.9, MCH 25.8 L, MCHC 30.7 L, RDW Std Deviation 43.7, RDW Coeff of [place] 14.3, Plt Count 268, MPV 11.5, Immature Gran % (Auto) 0.600, Neut % (Auto) 83.5 H, Lymph % (Auto) 8.6 L, [place] % (Auto) 7.0, Eos % (Auto) 0.0, Baso % (Auto) 0.3, Absolute Neuts (auto) 13.2 H, Absolute Lymphs (auto) 1.36, Nucleated RBC % 0, Sodium 140, Potassium 4.3, Chloride 111 H, Carbon Dioxide 24.0, Anion Gap 5, BUN 12, Creatinine 0.64, Estim Creat Clear Calc 39.40, Est GFR (MDRD) Af Amer 114, Est GFR (MDRD) Non-Af 94, BUN/Creatinine Ratio 18.6, Glucose 129 H, Calcium 9.6 Micro: Microbiology 01/14/24 08:22 Bone - Right Foot Gram Stain - Final 01/14/24 08:22 Bone - Right Foot Wound Culture - Preliminary No growth-Final to follow Assessment & Plan Assessment/Plan (1) Atherosclerosis of [place] arteries of right leg with ulceration of other part of foot: PLAN: -HLIV, cami jarquin diet -progressive ambulation -cont low dose heparin -possible dc later today
[2024-01-15] MEDS: Atorvastatin Calcium 10 MG Tablet PO (16:29)
[2024-01-15] MEDS: Ramipril 5 MG Capsule PO (16:29)
--- NOTE | 2024-01-15 17:00 | DS.PCM_ITS ---
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 Code(s): I70.235 - Atherosclerosis of [place] arteries of right leg with ulceration of other part of foot Plan: -HLIV, dc suárez, advance diet -progressive ambulation -cont low dose heparin -possible dc later today Medications at Discharge Home Medications aspirin 81 mg tablet,delayed release 81 mg PO DAILY HEART HEALTH 11/05/23 clopidogrel 75 mg tablet (Plavix) 75 mg PO DAILY BLOOD THINNER 11/05/23 ramipril 5 mg tablet 5 mg PO 1545 BP 11/05/23 rosuvastatin 5 mg tablet 5 mg PO 1545 CHOLESTEROL 11/05/23 oxycodone 5 mg tablet 5 mg PO Q8H PRN pain 7 days #21 tabs 01/15/24 Hospital Course Operations - (right femoral-popliteal bypass, right lower extremity 1st digit amputation) Summary of Care Provided Hospital Course: Mrs. Mitchell is an 78 yo female with arterial insufficiency and right great toe wound. 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 She presented for outpatient right femoral endarterectomy, femoral-BK popliteal bypass with cadaver and right 1st digit partial amputation on 01/14/2024. She tolerated the procedure well and was admitted to the ICU for hemodynamic and vascular monitoring. On POD # 1 she was ambulating well, voiding without difficulty, tolerating diet, and pain was controlled with PO regimen. She was then discharged to home 01/15/2024. Physical Exam Const alert, oriented x3, no apparent distress and healthy appearing General Appearance: cooperative; Negative for combative or lethargic Orientation / Consciousness: awake Exam Limitations: no limitations HEENT Head and Scalp: normocephalic and atraumatic Eyes EOMs intact bilaterally General Eye: normal appearance of both eyes Neck full ROM General: trachea midline; Negative for tenderness Resp normal respiratory effort and no use of accessory muscles Effort and Inspection: Negative for labored, stridor or audible wheezes Cardio regular rate and regular rhythm Back/Spine Cervical Spine: cervical ROM normal Extremity full ROM, normal capillary refill and no clubbing, cyanosis or edema Skin no rashes or lesions noted and no wounds Neuro oriented x3, CN's II-XII intact bilaterally, no focal motor deficits and no sensory deficits noted Psych thought process normal, cooperative, affect normal, speech normal and activity/motor behavior normal Weight / BMI Weight Weight: 100 lb 1.438 oz Body Mass Index (BMI) 16.4 ABG / Lab / Microbiology Data 01/15/24 03:20 01/15/24 03:20 Laboratory: Laboratory Results - last 24 hr 01/14/24 18:30: WBC 17.5 H, RBC 4.12 L, Hgb 10.8 L, Hct 34.6 L, MCV 84.0, MCH 26.2 L, MCHC 31.2 L, RDW Std Deviation 43.6, RDW Coeff of [place] 14.3, Plt Count 295, MPV 11.4, Immature Gran % (Auto) 0.500, Neut % (Auto) 91.5 H, Lymph % (Auto) 5.1 L, [place] % (Auto) 2.6, Eos % (Auto) 0.0, Baso % (Auto) 0.3, Absolute Neuts (auto) 16.0 H, Absolute Lymphs (auto) 0.89, Nucleated RBC % 0 01/15/24 03:20: WBC 15.8 H, RBC 3.84 L, Hgb 9.9 L, Hct 32.2 L, MCV 83.9, MCH 25.8 L, MCHC 30.7 L, RDW Std Deviation 43.7, RDW Coeff of [place] 14.3, Plt Count 268, MPV 11.5, Immature Gran % (Auto) 0.600, Neut % (Auto) 83.5 H, Lymph % (Auto) 8.6 L, [place] % (Auto) 7.0, Eos % (Auto) 0.0, Baso % (Auto) 0.3, Absolute Neuts (auto) 13.2 H, Absolute Lymphs (auto) 1.36, Nucleated RBC % 0, Sodium 140, Potassium 4.3, Chloride 111 H, Carbon Dioxide 24.0, Anion Gap 5, BUN 12, Creatinine 0.64, Estim Creat Clear Calc 39.40, Est GFR (MDRD) Af Amer 114, Est GFR (MDRD) Non-Af 94, BUN/Creatinine Ratio 18.6, Glucose 129 H, Calcium 9.6 Microbiology: Microbiology 01/14/24 08:22 Bone - Right Foot Gram Stain - Final 01/14/24 08:22 Bone - Right Foot Wound Culture - Preliminary No growth-Final to follow D/C Instructions Discharge Diet: No restrictions May shower in (days): 2 Weight Bearing Status: - (partial heel weight bearing on right ) Lifting Restricted to (Lbs): 20 Call your doctor if your incision/area has: Sudden Increased Bleeding, Increased Pain/ Swelling, Increased Redness and Foul Smelling Discharge Call your doctor if you observe: Fever of 101 or Higher, Coldness, Increased Pain and Numbness or Tingling Remove Dressing in: 5 days Cleanse incision/area with: Soap & Water Meaningful Use Info Meaningful Use Meaningful Use Diagnoses (Choose all that apply): None applicable Ischemic Stroke Statin Dosing Therapy Reference: STATIN DOSE THERAPY REFERENCE: * Patients > 75 years receive moderate or high dose statin therapy. * Patients 75 years or YOUNGER should receive HIGH intensity statin dose unless contraindicated. You will be required to document reason for non-treatment if statin daily dose does not meet guidelines. HIGH DOSE STATIN THERAPY DAILY Atorvastatin > than or = to 40 mg Rosuvastatin > than or = to 20 mg Amlodipine + Atorvastatin > than or = to 2.5/40 mg Ezetimibe + Simvastatin 10/80 mg Simvastatin 80mg Discharge Plan Admission Admit Date/Time: 01/14/24 12:16 Attending Provider: Harris Saxena Primary Care Provider: Raudel Nance NP Consulting Providers: Derek Taylor Discharge Orders/Prescriptions Prescriptions: New oxycodone 5 mg tablet 5 mg PO Q8H PRN (Reason: pain) 7 Days Qty: 21 0RF Continued clopidogrel [Plavix] 75 mg tablet 75 mg PO DAILY aspirin 81 mg tablet,delayed release (DR/EC) 81 mg PO DAILY ramipril 5 mg tablet 5 mg PO 1545 rosuvastatin 5 mg tablet 5 mg PO 1545 Referrals / Follow Up: Raudel Nance NP, UNEMPLOYMENT INSURANCE DIRECTOR-C [Primary Care Provider] - Disposition Disposition (needs filled in before D/C Order can be placed): Home, Self Care
[2024-01-16 12:10] LABS: Vitamin D 1,25-Dihydroxy 64.1 pg/mL (24.8-81.5)
[2024-01-17 09:09] LABS: Cotinine Screen Blood 333.8 ng/mL (.); Nicotine Blood 9.7 ng/mL (.)
== END 2024-01-15 18:50 | disposition home or self-care (01) | DRG 464 ==
PROVIDERS: Anesthesiology; Podiatrist Foot & Ankle Surgery; Admitting Provider Surgery Trauma Surgery; PCP Nurse Practitioner Family; Referring Provider Surgery Trauma Surgery; Visit Provider Surgery Trauma Surgery
PROC: 041K0KL Bypass Right Femoral Artery to Popliteal Artery with Nonautologous Tissue Substitute, Open Approach (ICD-10-PCS; principal; 2024-01-14 07:00)
PROC: 0Y6P0Z3 Detachment at Right 1st Toe, Low, Open Approach (ICD-10-PCS; 2024-01-14 07:00)
DX: M86.471 Chronic osteomyelitis with draining sinus, right ankle and foot (principal); I70.261 Atherosclerosis of native arteries of extremities with gangrene, right leg; I70.92 Chronic total occlusion of artery of the extremities; L97.514 Non-pressure chronic ulcer of other part of right foot with necrosis of bone; Z79.02 Long term (current) use of antithrombotics/antiplatelets; Z79.82 Long term (current) use of aspirin; Z79.899 Other long term (current) drug therapy; Z87.891 Personal history of nicotine dependence; Z95.820 Peripheral vascular angioplasty status with implants and grafts
CPT/HCPCS: 36415; 73620; 76000; 80048; 80323; 82652; 82962; 83036; 83735; 85025; 85027; 85610; 85730; 86850; 86900; 86901; 87015; 87070; 87075; 87077; 87116; 87176; 87186; 87205; 87206; 88304; 88311; 93005; 94668; 97162; 97165; 97802; 99252; A4648; J7120; G0463; G0480; J2405; J3475

== ENCOUNTER → 2024-02-18 | Outpatient (CLI) | payer MEDICARE, SELFPAY ==
--- NOTE | 2024-02-18 09:56 | ART_ITS ---
Reason For Study: S/P fem-pop bypass Procedure A bilateral lower extremity continuous wave Doppler with analog waveform analysis and ankle brachial indexes. Left Segmental Pressures Left brachial= 156mmHg. Left posterior tibial artery = 51mmHg. Left dorsalis pedis artery = 56mmHg. The left dorsalis pedis waveforms are monophasic. The left posterior tibial artery waveforms are monophasic. Right Segmental Pressures Right brachial= 149mmHg. Right posterior tibial artery = 154mmHg. Right dorsalis pedis artery = 149mmHg. The right dorsalis pedis waveforms are biphasic. The right posterior tibial artery waveforms are biphasic. Indices The right ankle brachial index by the dorsalis pedis is 0.96. The right ankle brachial index by the posterior tibial artery is 0.99. The left ankle brachial index by the dorsalis pedis is 0.36. The left ankle brachial index by the posterior tibial artery is 0.33. VL/Ankle Brachial Index Interpretation Summary Right BRYNN 0.99, mild arterial insufficiency. Doppler/PVR waveforms of the right ankle mildly diminished at rest. Left BRYNN 0.36, severe arterial insufficiency. Doppler/PVR waveforms of the left ankle severely diminished at rest. Ordering Physician: Zoey Wong Referring Physician: Raudel Nance Performed By: Edie Villalba RVT
--- NOTE | 2024-02-18 09:56 | ADUL_ITS ---
Reason For Study: S/P Rt fem-pop bypass Right Velocities Ext. Iliac Artery, dist = 190.7 cm./sec. Common Femoral Artery, prox = 229.9 cm./sec. Common Femoral Artery, dist = 55.9 cm./sec. Right Fem-Pop Bypass Prox anastamosis, 206.6 cm/sec. Prox graft, 157.1 cm/sec. Mid graft, 104.5 cm/sec. Distal graft, 78.1 cm/sec. Distal anastamosis, 104.3 cm/sec. Profunda Femoral Artery = 61.4 cm./sec. T/P Trunk distal, 152.8 cm/sec. Post. Tibial Artery, prox = 296.6 cm./sec. Post. Tibial Artery, mid = 86.7 cm./sec. Post. Tibial Artery, dist = 85.5 cm./sec. Peroneal Artery, prox = 38.8 cm./sec. Peroneal Artery, mid = 35.1 cm./sec. Peroneal Artery,dist = 12.4 cm./sec. Ant. Tibial Artery, prox = 136.3 cm./sec. Ant. Tibial Artery, mid = 164.8 cm./sec. Ant. Tibial Artery, dist = 108.9 cm./sec. Large nonvascularized structure is noted in the right groin. Procedure Exam performed in department. /US Art Duplex Unilat Lower Ext Interpretation Summary Patent right femoral-popliteal bypass with normal velocities and no evidence of stenosis. Nonvascularized structure is noted in the right groin. Ordering Physician: Zoey Wong Referring Physician: Raudel Nance Performed By: Edie Villalba RVT
--- OUTSIDE RECORDS SUMMARY | 2024-02-18 10:58 | XMS RPT_ITS | CCD ---
Author Organization [facility] Care Team Providers Care Label Drier Name Role Phone YANE MAN (AVIATION TECHNICIAN) Unavailable Unavailab YANE Joiner (AVIATION TECHNICIAN) Unavailable Unavailab YANE Joiner (AVIATION TECHNICIAN) Unavailable Unavailab YANE Joiner (AVIATION TECHNICIAN) Unavailable Unavailab YANE Joiner (AVIATION TECHNICIAN) Unavailable Unavailab jonathan Gaitan CNP, TOMMIE [facility] THIEN Gaitan CNP, TOMMIE Montemayor Attending U kieran Gaitan CNP, TOMMIE [facility] U ROHIT Villagran MD Attending Unavailable THIEN Gaitan CNP, TOMMIE [facility] U ROHIT Villagran MD Attending Unavailable THIEN Gaitan CNP, TOMMIE [facility] U kieran Gaitan CNP, TOMMIE [facility] U ROHIT Villagran MD Attending Unavailable THIEN Gaitan CNP, TOMMIE [facility] U kieran Gaitan CNP, TOMMIE Montemayor Attending U NARDA Guajardo MD Attending Unavailab le THIEN Gaitan CNP, TOMMIE [facility] U ROHIT Villagran MD Attending Unavailable THIEN Gaitan CNP, TOMMIE [facility] U kieran Allergies Allergy Classification Reported Allergen(s) Allergy Type Date of Onset Reaction(s) Facility (1 source) Sulfonamides (Antibiotic); Translations: [SULFA (SULFONAMIDE ANTIBIOTICS)] Propensity to adverse reactions to drug (disorder) 5 AOF [facility] Repository (5 sources) Sulfonamide; Translations: [sulfa drugs] Drug allergy Facial swelling (finding) [facility] Medications Current Medications Medication Drug Class(es) Dates Sig (Normalized) Sig (Original) 8 hr acetaminophen 650 mg extended release oral tablet (2 sources) Start: 09-14-2023 Tylenol 8 Hour 650 mg oral tablet, extended release Dose : 1,300 mg = 2 tab(s), Oral, q8h, PRN as needed for pain, # 24 tab(s), 0 Refill(s) Start Date: 09/14/23 Status: Ordered acetaminophen 250 mg / aspirin 250 mg / caffeine 65 mg oral tablet (3 sources) Platelet Aggregation Inhibitor, Nonsteroidal Anti-inflammatory Drug, Central Nervous System Stimulant, Methylxanthine Start: 08-02-2023 take 1 tablet by mouth every six hours Excedrin Extra Strength oral tab (250/250/65) tab(s), Oral, q6hr, 0 Refill(s) Start Date: 08/02/23 Status: Ordered aspirin 81 mg delayed release oral tablet (2 sources) Platelet Aggregation Inhibitor, Nonsteroidal Anti-inflammatory Drug Start: 09-14-2023 aspirin 81 mg oral delayed release tablet Dose : 81 mg = 1 tab(s), Oral, Daily, 0 Refill(s) Start Date: 09/14/23 Status: Ordered clopidogrel 75 mg oral tablet (4 sources) [id number] Platelet Inhibitor Start: 08-28-2023 End: 02-24-2024 Plavix 75 mg oral tablet Dose : 75 mg = 1 tab(s), Oral, qDay, D/c Omeprazole, # 30 tab(s), 5 Refill(s), Pharmacy: [id number], 163.5, cm, 08/28/23 8:55:00 EDT, Height, kg, 08/28/23 8:55:00 EDT, Dosing Weight Start Date: 08/28/23 Stop Date: 02/24/24 Status: Ordered meloxicam 15 mg oral tablet (1 source) Nonsteroidal Anti-inflammatory Drug Start: 08-02-2023 End: 09-01-2023 Mobic 15 mg oral tablet Dose : 15 mg = 1 tab(s), Oral, qDay, # 30 tab(s), 0 Refill(s), Pharmacy: [id number], Chronic right-sided low back pain, 163.5, cm, 08/02/23 14:37:00 EDT, Height, kg, 08/02/23 14:37:00 EDT, Dosing Weight Start Date: 08/02/23 Stop Date: 09/01/23 Status: Ordered omeprazole 40 mg delayed release oral capsule (1 source) Proton Pump Inhibitor Start: 08-02-2023 omeprazole 40 mg oral delayed release capsule Dose : 40 mg = 1 cap(s), Oral, qDay, # 30 cap(s), 0 Refill(s), Pharmacy: [facility], Chronic right-sided low back pain, 163.5, cm, 08/02/23 14:37:00 EDT, Height, kg, 08/02/23 14:37:00 EDT, Dosing Weight Start Date: 08/02/23 Status: Ordered ramipril 5 mg oral capsule (4 sources) Angiotensin Converting Enzyme Inhibitor Start: 08-28-2023 End: 02-24-2024 ramipril 5 mg oral capsule Dose : 5 mg = 1 cap(s), Oral, Daily, # 30 cap(s), 5 Refill(s), Pharmacy: [facility], HTN, goal below 140/90, 163.5, cm, 08/28/23 8:55:00 EDT, Height, kg, 08/28/23 8:55:00 EDT, Dosing Weight Start Date: 08/28/23 Stop Date: 02/24/24 Status: Ordered rosuvastatin calcium 5 mg oral tablet (4 sources) HMG-CoA Reductase Inhibitor Start: 08-30-2023 End: 02-26-2024 rosuvastatin 5 mg oral tablet Dose : 5 mg = 1 tab(s), Oral, qDay, # 30 tab(s), 5 Refill(s), Pharmacy: [facility], Hyperlipidemia LDL goal Start Date: 08/30/23 Stop Date: 02/26/24 Status: Ordered traMADol hydrochloride 50 mg oral tablet (2 sources) Opioid Agonist Start: 08-28-2023 End: 09-11-2023 traMADol 50 mg oral tablet Dose : 50 mg = 1 tab(s), Oral, TID, PRN as needed for pain, Fill Date: 08/28/2023, X 14 day(s), # 42 tab(s), 0 Refill(s), 09/11/23 9:39:00 AM EDT, Pharmacy: [facility], Pain of right leg Arterial insufficiency, 163.5, cm, 08/28/23 8:55:00 EDT, Height, 45.6, kg, 08/28/23 8:55:00 EDT, Dosing Weight Start Date: 08/28/23 Stop Date: 09/11/23 Status: Ordered Vitamin D with Minerals oral tablet (3 sources) Start: 01-15-2023 take 1 tablet by mouth once daily Vitamin D with Minerals oral tablet tab(s), Oral, qDay, 0 Refill(s) Start Date: 01/15/23 Status: Ordered Problems Active Problems Problem Classification Problem Date Documented Date Episodic/Chronic Acute and unspecified renal failure (2 sources) Unspecified kidney failure; Translations: [Unspecified kidney failure] Onset: 09-14-2023 Chronic Disorders of lipid metabolism (4 sources) Hyperlipidemia 08-28-2023 Chronic Essential hypertension (4 sources) Hypertensive disorder 08-28-2023 Chronic Infective arthritis and osteomyelitis (except that caused by tuberculosis or sexually transmitted disease) (2 sources) Osteomyelitis; Translations: [Osteomyelitis, unspecified] Onset: 01-23-2024 Chronic Open wounds of extremities (1 source) Traumatic amputation, greater toe; 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, initial encounter] Onset: 01-23-2024 Chronic Other acquired deformities (5 sources) Spondylolysis 08-02-2023 Episodic Other aftercare (1 source) Follow-up status; Translations: [Encounter for follow-up examination after completed treatment for conditions other than malignant neoplasm] Onset: 01-23-2024 Episodic Other circulatory disease (5 sources) Arterial insufficiency 08-10-2023 Chronic Other circulatory disease (1 source) H/O: artificial organ/tissue; Translations: [Presence of other vascular implants and grafts] Onset: 01-23-2024 Chronic Other circulatory disease (1 source) History of arterial bypass of lower limb artery 01-23-2024 Chronic Other circulatory disease (1 source) Elevated blood-pressure reading without diagnosis of hypertension 09-26-2021 Episodic Other connective tissue disease (5 sources) Pain in right lower limb 08-02-2023 Episodic Other nervous system disorders (5 sources) Paresthesia of right lower limb 08-10-2023 Episodic Other non-traumatic joint disorders (1 source) Pain in right shoulder; Translations: [Pain in right shoulder] Onset: 02-13-2018 Episodic Other skin disorders (5 sources) Discoloration of skin 08-02-2023 Episodic Spondylosis; intervertebral disc disorders; other back problems (5 sources) Degeneration of lumbosacral intervertebral disc 01-29-2020 Chronic Comment on above: There is mild levosc oliosis in the lumbar region. Severe L5-S1 and mild L4-L5 disc space narrowing. Multilevel mild spondylosis and moderate lower lumbar spine facet arthropathy. Mild L4-L5 anterolisthesis without spondylolysis. 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 01-23-2024 Past or Other Problems Problem Classification Problem Date Documented Da te Episodic/Chronic Cancer of breast (1 source) Personal history of malignant neoplasm of breast; Translations: [Personal history of malignant neoplasm of breast] Onset: 03-02-2014 Episodic Results Test Name Value Interpretation Reference Range Facility .Auto Diffon 09-14-2023 Basophil, Absolute 0.1 10 3/mcL Normal 0.0-0.3 [facility] ([place]) Comment on above: Performed By: #### C BC, BMP, GFR, ADIFF, ANEU #### [address] [address] Basophils/100 WBC (Bld) 0.9 % Normal 0.0-2.5 [facility] ([place]) Comment on above: Performed By: #### C BC, BMP, GFR, ADIFF, ANEU #### [address] [address] Eosinophil, Absolute 0.0 10 3/mcL Normal 0.0-0.7 [facility] ([place]) Comment on above: Performed By: #### C BC, BMP, GFR, ADIFF, ANEU #### [address] [address] Eosinophils/100 WBC (Bld) 0.3 % Normal 0.0-6.0 [facility] ([place]) Comment on above: Performed By: #### C BC, BMP, GFR, ADIFF, ANEU #### [address] [address] Lymphocyte, Absolute 2.0 10 3/mcL Normal 0.9-4.3 [facility] ([place]) Comment on above: Performed By: #### C BC, BMP, GFR, ADIFF, ANEU #### [address] [address] Lymphocytes/100 WBC (Bld) 15.2 % Low 20.0-40.0 [facility] ([place]) Comment on above: Performed By: #### C BC, BMP, GFR, ADIFF, ANEU #### [address] [address] Monocyte, Absolute 0.9 10 3/mcL Normal 0.1-1.4 [facility] ([place]) Comment on above: Performed By: #### C BC, BMP, GFR, ADIFF, ANEU #### [address] [address] Monocytes/100 WBC (Bld) 7.0 % Normal 2.0-13.0 [facility] ([place]) Comment on above: Performed By: #### C BC, BMP, GFR, ADIFF, ANEU #### [address] [address] Neutrophils/100 WBC (Bld) 76.6 % High 50.0-75.0 [facility] ([place]) Comment on above: Performed By: #### C BC, BMP, GFR, ADIFF, ANEU #### [address] [address] .GFRon 09-14-2023 GFR Non- >60 Normal [facility] ([place]) Comment on above: Result Comment: GFR Population mean for , Non- Americans Ages 20-29 = 116 mL/min/1.73 sq.m. Ages 30-39 = 107 mL/min/1.73 sq.m. Ages 40-49 = 99 mL/min/1.73 sq.m. Ages 50-59 = 93 mL/min/1.73 sq.m. Ages 60-69 = 85 mL/min/1.73 sq.m. Ages 70+ = 75 mL/min/1.73 sq.m. Chronic Kidney Disease: Less than 60 mL/min/1.73 square meters End Stage Renal Disease: Less than 15 mL/min/1.73 square meters Performed By: #### C BC, BMP, GFR, ADIFF, ANEU #### [address] [address] GFR >60 Normal [facility] ([place]) Comment on above: Result Comment: GFR Population mean for , Non- Americans Ages 20-29 = 116 mL/min/1.73 sq.m. Ages 30-39 = 107 mL/min/1.73 sq.m. Ages 40-49 = 99 mL/min/1.73 sq.m. Ages 50-59 = 93 mL/min/1.73 sq.m. Ages 60-69 = 85 mL/min/1.73 sq.m. Ages 70+ = 75 mL/min/1.73 sq.m. Chronic Kidney Disease: Less than 60 mL/min/1.73 square meters End Stage Renal Disease: Less than 15 mL/min/1.73 square meters Performed By: #### C BC, BMP, GFR, ADIFF, ANEU #### [address] [address] .NEUABSon 09-14-2023 Neutrophil, Absolute 9.9 10 3/mcL High 2.3-8.1 [facility] ([place]) Comment on above: Performed By: #### C BC, BMP, GFR, ADIFF, ANEU #### [address] [address] BMPon 09-14-2023 BUN/Creatinine Ratio 28.8 ratio High 10.0-22.0 [facility] ([place]) Comment on above: Performed By: #### C BC, BMP, GFR, ADIFF, ANEU #### [address] [address] Calcium [Mass/Vol] 10.4 mg/dL Normal 8.7-10.4 [facility] ([place]) Comment on above: Performed By: #### C BC, BMP, GFR, ADIFF, ANEU #### [address] [address] Chloride [Moles/Vol] 110 mmol/L Normal 98-110 [facility] ([place]) Comment on above: Performed By: #### C BC, BMP, GFR, ADIFF, ANEU #### [address] [address] CO2 [Moles/Vol] 26 mmol/L Normal 22-32 [facility] ([place]) Comment on above: Performed By: #### C BC, BMP, GFR, ADIFF, ANEU #### [address] [address] Creatinine [Mass/Vol] 0.59 mg/dL Normal 0.50-1.20 [facility] ([place]) Comment on above: Performed By: #### C BC, BMP, GFR, ADIFF, ANEU #### [address] [address] Electrolyte Balance 6.0 mEq/L Normal 4.0-15.0 [facility] ([place]) Comment on above: Performed By: #### C BC, BMP, GFR, ADIFF, ANEU #### [address] [address] Glucose [Mass/Vol] 108 mg/dL Normal 82-115 [facility] ([place]) Comment on above: Performed By: #### C BC, BMP, GFR, ADIFF, ANEU #### [address] [address] Potassium [Moles/Vol] 4.3 mmol/L Normal 3.5-5.0 [facility] ([place]) Comment on above: Performed By: #### C BC, BMP, GFR, ADIFF, ANEU #### [address] [address] Sodium [Moles/Vol] 142 mmol/L Normal 136-145 [facility] ([place]) Comment on above: Performed By: #### C BC, BMP, GFR, ADIFF, ANEU #### [place] [address] Urea nitrogen [Mass/Vol] 17.0 mg/dL Normal 8.0-22.0 [facility] ([place]) Comment on above: Performed By: #### C BC, BMP, GFR, ADIFF, ANEU #### [place] [id number] CBCon 09-14-2023 Erythrocyte distribution width (RBC) [Ratio] 14.0 % Normal 11.5-15.5 [facility] ([place]) Comment on above: Performed By: #### C BC, BMP, GFR, ADIFF, ANEU #### [place] [address] Hematocrit (Bld) [Volume fraction] 37.6 % Normal 34.0-46.0 [facility] ([place]) Comment on above: Performed By: #### C BC, BMP, GFR, ADIFF, ANEU #### [place] [address] Hgb 12.6 G/dL Normal 12.0-16.0 [facility] ([place]) Comment on above: Performed By: #### C BC, BMP, GFR, ADIFF, ANEU #### [place] [address] MCH (RBC) [Entitic mass] 29.6 pg Normal 27.0-33.0 [facility] ([place]) Comment on above: Performed By: #### C BC, BMP, GFR, ADIFF, ANEU #### [place] [address] MCHC 33.5 G/dL Normal 32.0-36.0 [facility] ([place]) Comment on above: Performed By: #### C BC, BMP, GFR, ADIFF, ANEU #### [place] [address] MCV (RBC) [Entitic vol] 88.2 fL Normal 80.0-99.0 [facility] ([place]) Comment on above: Performed By: #### C BC, BMP, GFR, ADIFF, ANEU #### [place] [address] Platelet 451 10 3/mcL High 150-450 [facility] ([place]) Comment on above: Performed By: #### C BC, BMP, GFR, ADIFF, ANEU #### [address] [address] Platelet mean volume (Bld) [Entitic vol] 8.5 fL Normal 6.6-10.5 [facility] ([place]) Comment on above: Performed By: #### C BC, BMP, GFR, ADIFF, ANEU #### [address] [address] RBC 4.27 10 6/mcL Normal 4.10-5.30 [facility] ([place]) Comment on above: Performed By: #### C BC, BMP, GFR, ADIFF, ANEU #### [address] [address] WBC 12.9 10 3/mcL High 4.5-10.8 [facility] ([place]) Comment on above: Performed By: #### C BC, BMP, GFR, ADIFF, ANEU #### [place] [address] IR ARTERIOGRAM ABDOMINALon 0 09-14-2023 IR ARTERIOGRAM ABDOMINAL ORIGINAL Images acquired, not reported on this accession number. Normal [facility] ([place]) LABORATORYOrdered By: SYSTEM SYSTEM on 09-14-2023 Basophils (Bld) [#/Vol] 0.1 103/mcL Normal 0.0 - 0.3 10^3/mcL AH Workflow SS Basophils/100 WBC (Bld) 0.9 % Normal 0.0 - 2.5 % Workflow SS Calcium [Mass/Vol] 10.4 mg/dL Normal 8.7 - 10. 4 mg/dL AH ADM SS Chloride [Moles/Vol] 110 mmol/L Normal 98 - 110 mEq/L AH ADM SS CO2 [Moles/Vol] 26 mmol/L Normal 22 - 32 mEq/L ADM SS Creatinine [Mass/Vol] 0.59 mg/dL Normal 0.50 - 1.20 mg/dL ADM SS Electrolyte Balance 6.0 mEq/L Normal 4.0 - 15.0 mEq/L AH ADM SS Eosinophils (Bld) [#/Vol] 0.0 103/mcL Normal 0.0 - 0.7 10^3/mcL Workflow SS Eosinophils/100 WBC (Bld) 0.3 % Normal 0.0 - 6.0 % Workflow SS Erythrocyte distribution width (RBC) [Ratio] 14.0 % Normal 11.5 - 15.5 % Workflow SS GFR/1.73 sq M.predicted among blacks MDRD (S/P/Bld) [Vol rate/Area] ml/min/1.73sqm Invalid Interpretation Code Chemistry S Comment on above: Interpretive Data: GFR Population mean for , Non- Americans Ages 20-29 = 116 mL/min/1.73 sq.m. Ages 30-39 = 107 mL/min/1.73 sq.m. Ages 40-49 = 99 mL/min/1.73 sq.m. Ages 50-59 = 93 mL/min/1.73 sq.m. Ages 60-69 = 85 mL/min/1.73 sq.m. Ages 70+ = 75 mL/min/1.73 sq.m. Chronic Kidney Disease: Less than 60 mL/min/1.73 square meters End Stage Renal Disease: Less than 15 mL/min/1.73 square meters GFR/1.73 sq M.predicted among non-blacks MDRD (S/P/Bld) [Vol rate/Area] ml/min/1.73sqm Invalid Interpretation Code Chemistry S Comment on above: Interpretive Data: GFR Population mean for , Non- Americans Ages 20-29 = 116 mL/min/1.73 sq.m. Ages 30-39 = 107 mL/min/1.73 sq.m. Ages 40-49 = 99 mL/min/1.73 sq.m. Ages 50-59 = 93 mL/min/1.73 sq.m. Ages 60-69 = 85 mL/min/1.73 sq.m. Ages 70+ = 75 mL/min/1.73 sq.m. Chronic Kidney Disease: Less than 60 mL/min/1.73 square meters End Stage Renal Disease: Less than 15 mL/min/1.73 square meters Glucose [Mass/Vol] 108 mg/dL Normal 82 - 115 mg/dL ADM SS Hematocrit (Bld) [Volume fraction] 37.6 % Normal 34.0 - 46.0 % AH Workflow SS Hemoglobin (Bld) [Mass/Vol] 12.6 G/dL Normal 12.0 - 16.0 G/dL AH Workflow SS Lymphocytes (Bld) [#/Vol] 2.0 103/mcL Normal 0.9 - 4.3 10^3/mcL AH Workflow SS Lymphocytes/100 WBC (Bld) 15.2 % Low 20.0 - 40.0 % AH Workflow SS MCH (RBC) [Entitic mass] 29.6 pg Normal 27.0 - 33.0 pg AH Workflow SS MCHC 33.5 G/dL Normal 32.0 - 36.0 G/dL AH Workflow SS MCV (RBC) [Entitic vol] 88.2 fL Normal 80.0 - 99.0 fL Workflow SS Monocytes (Bld) [#/Vol] 0.9 103/mcL Normal 0.1 - 1.4 10^3/mcL AH Workflow SS Monocytes/100 WBC (Bld) 7.0 % Normal 2.0 - 13.0 % AH Workflow SS Neutrophils (Bld) [#/Vol] 9.9 103/mcL High 2.3 - 8.1 10^3/mcL AH Workflow SS Neutrophils/100 WBC (Bld) 76.6 % High 50.0 - 75.0 % Workflow SS Platelet mean volume (Bld) [Entitic vol] 8.5 fL Normal 6.6 - 10.5 fL AH Workflow SS Platelets (Bld) [#/Vol] 451 103/mcL High 150 - 450 10^3/mcL AH Workflow SS Potassium [Moles/Vol] 4.3 mmol/L Normal 3.5 - 5.0 mEq/L ADM SS RBC (Bld) [#/Vol] 4.27 106/mcL Normal 4.10 - 5.30 10^6/mcL AH Workflow SS Sodium [Moles/Vol] 142 mmol/L Normal 136 - 145 mEq/L ADM SS Urea nitrogen [Mass/Vol] 17.0 mg/dL Normal 8.0 - 22.0 mg/dL ADM SS Urea nitrogen/Creatinin e [Mass ratio] 28.8 ratio High 10.0 - 22.0 ratio ADM SS WBC (Bld) [#/Vol] 12.9 103/mcL High 4.5 - 10.8 10^3/mcL Workflow SS CT ANGIOGRAPHY ABD/PELVIS/BI LAT LOWER EXTREMon 09-06-2023 CT ANGIOGRAPHY ABD/PELVIS/BILAT LOWER EXTREM ORIGINAL EXAMINATION: CTA OF THE AORTA WITH LOWER EXTREMITY RUNOFF08/31/2023 4:52 pm TECHNIQUE: Multiplanar and 3D reconstructed images were generated, reviewed and manipulated on a separate workstation. This exam was performed according to our departmental dose-optimization program which includes automated exposure control, adjustment of the mA and/or kVp according to patient size and/or use of iterative reconstruction technique where applicable. DEFINITIONS Stenosis Severity Grading: Normal: 0% stenosis Minimal: <25% stenosis Mild: 25-49% stenosis Moderate: 50-69% stenosis Severe: 70-99% stenosis Occluded: 100% Abbreviations: Ao: Aorta; CA: Celiac artery; RA: Renal artery; SMA: Superior mesenteric artery; LJ: Inferior mesenteric artery; MONA: Common iliac artery; EIA: External iliac artery; IIA: Internal iliac artery; BUYER PLANNER: Common femoral artery; PFA: Profunda femoris artery; SFA: Superficial femoral artery; TPT: Tibioperoneal trunk; CAROLINE: Anterior tibial artery; STAGE MANAGER: Posterior tibial artery; Pop: Popliteal artery; Per: Peroneal; RT: Right; LT: Left COMPARISON: None HISTORY: ORDERING SYSTEM PROVIDED HISTORY: Reason for Exam: Atherosclerosis of [place] arteries of EXT FINDINGS: VASCULAR: Suprarenal Ao: Moderate atherosclerosis.No aneurysm. CA: Origin and proximal trunk incompletely captured. Common hepatic artery and splenic artery are patent. SMA: Moderate stenosis just distal to the ostium secondary to primarily noncalcified plaque. RT RA: Single renal artery.Mild stenosis secondary to mixed calcified and noncalcified plaque LT RA: Single renal artery.Moderate stenosis at the ostium secondary to primarily calcified plaque. Infrarenal Ao: 2.6 x 2.4 cm infrarenal abdominal aortic aneurysm with extensive mural thrombus. LJ: The origin and trunk are thrombosed with reconstitution distally. RIGHT MONA: Mild stenosis secondary to mixed calcified and noncalcified plaque. EIA: Long segment complete occlusion with reconstitution at the most distal aspect just proximal to the origin of the inferior epigastric artery. BUYER PLANNER: Mild stenosis proximally primarily secondary to mixed calcified and noncalcified plaque. PFA: Mild stenosis proximally secondary to mixed calcified and noncalcified plaque. SFA: Minimal opacification proximally with complete occlusion of the remaining vessel. Pop: Occluded proximally with reconstitution at the level of the superior patellar margin. Areas of calcified and noncalcified plaque result in no significant stenosis in the opacified portions. CAROLINE: Moderate short-segment proximal stenosis primarily to secondary calcified plaque. Runoff to the foot. TPT: Moderate stenosis secondary to primarily calcified plaque. Per: Occluded at the level of the mid/distal tibia. STAGE MANAGER: Occluded at the level of the distal tibia. LEFT MONA: Complete diffuse occlusion. EIA: Complete diffuse occlusion. Reconstitution at the origin of the inferior epigastric artery. BUYER PLANNER: Mild multifocal stenoses secondary to mixed calcified and noncalcified plaque. PFA: Mild focal stenosis proximally secondary to primarily calcified plaque. SFA: Occlusion of essentially the entire vessel with reconstitution just proximal to the adductor hiatus. Pop: Multifocal mild to moderate stenoses proximally secondary to mixed calcified and noncalcified plaque. Areas of mild multifocal stenosis are seen distally. CAROLINE: Moderate to severe focal stenosis secondary to primarily calcified plaque proximally. TPT: Moderate multifocal stenosis secondary to mixed calcified and noncalcified plaque. Per: Runoff to ankle. STAGE MANAGER: Moderate multifocal stenosis proximally with adequate runoff to the foot. NONVASCULAR: LUNG BASES: Scattered areas of atelectasis. LIVER:The hepatic dome is incompletely visualized. Subcentimeter cyst along the falciform ligament. BILIARY: Mild intra and extrahepatic biliary ductal dilatation with the proximal portions of the common bile duct measuring 13 mm with tapering distally. GALLBLADDER: Surgically absent. SPLEEN: Not enlarged. No lesions. RT ADRENAL: Mild thickening, likely hyperplasia. LT ADRENAL: Mild thickening, likely hyperplasia. PANCREAS: 1.3 cm pancreatic tail hypodense cystic lesion. No biliary ductal dilatation. ASCITES: None RT KIDNEY: Normal enhancement. No hydronephrosis. LT KIDNEY: Normal enhancement. No hydronephrosis. Superior pole simple renal cyst. URINARY BLADDER: Unremarkable. UTERUS: Present. Small calcified fibroid. No adnexal mass. GI: No obstruction. No inflammatory change. No free air. Colonic diverticulosis without acute diverticulitis. Appendix is normal. Left wide neck perineal hernia containing a portion of distal sigmoid colon without obstruction. LYMPHATIC: No abdominal or pelvic ad (more content not included)... Normal [facility] ([place]) .GFRon 08-31-2023 GFR Non- 72 ml/min/1.73sqm Normal [facility] ([place]) Comment on above: Result Comment: GFR Population mean for , Non- Americans Ages 20-29 = 116 mL/min/1.73 sq.m. Ages 30-39 = 107 mL/min/1.73 sq.m. Ages 40-49 = 99 mL/min/1.73 sq.m. Ages 50-59 = 93 mL/min/1.73 sq.m. Ages 60-69 = 85 mL/min/1.73 sq.m. Ages 70+ = 75 mL/min/1.73 sq.m. Chronic Kidney Disease: Less than 60 mL/min/1.73 square meters End Stage Renal Disease: Less than 15 mL/min/1.73 square meters Performed By: #### C RE, GFR #### [place] [address] [address] GFR 87 ml/min/1.73sqm Normal [facility] ([place]) Comment on above: Result Comment: GFR Population mean for , Non- Americans Ages 20-29 = 116 mL/min/1.73 sq.m. Ages 30-39 = 107 mL/min/1.73 sq.m. Ages 40-49 = 99 mL/min/1.73 sq.m. Ages 50-59 = 93 mL/min/1.73 sq.m. Ages 60-69 = 85 mL/min/1.73 sq.m. Ages 70+ = 75 mL/min/1.73 sq.m. Chronic Kidney Disease: Less than 60 mL/min/1.73 square meters End Stage Renal Disease: Less than 15 mL/min/1.73 square meters Performed By: #### C RE, GFR #### Urmila [address] [address] CREon 08-31-2023 Creatinine [Mass/Vol] 0.77 mg/dL Normal 0.55-1.02 [facility] ([place]) Comment on above: Performed By: #### C RE, GFR #### Urmila [address] [address] LABORATORYOrdered By: SYSTEM SYSTEM on 08-31-2023 Creatinine [Mass/Vol] 0.77 mg/dL Normal 0.55 - 1.02 mg/dL AO ADM SS GFR/1.73 sq M.predicted among blacks MDRD (S/P/Bld) [Vol rate/Area] 87 ml/min/1.73sqm Invalid Interpretation Code AO Chemistry S Comment on above: Interpretive Data: GFR Population mean for , Non- Americans Ages 20-29 = 116 mL/min/1.73 sq.m. Ages 30-39 = 107 mL/min/1.73 sq.m. Ages 40-49 = 99 mL/min/1.73 sq.m. Ages 50-59 = 93 mL/min/1.73 sq.m. Ages 60-69 = 85 mL/min/1.73 sq.m. Ages 70+ = 75 mL/min/1.73 sq.m. Chronic Kidney Disease: Less than 60 mL/min/1.73 square meters End Stage Renal Disease: Less than 15 mL/min/1.73 square meters GFR/1.73 sq M.predicted among non-blacks MDRD (S/P/Bld) [Vol rate/Area] 72 ml/min/1.73sqm Invalid Interpretation Code AO Chemistry S Comment on above: Interpretive Data: GFR Population mean for , Non- Americans Ages 20-29 = 116 mL/min/1.73 sq.m. Ages 30-39 = 107 mL/min/1.73 sq.m. Ages 40-49 = 99 mL/min/1.73 sq.m. Ages 50-59 = 93 mL/min/1.73 sq.m. Ages 60-69 = 85 mL/min/1.73 sq.m. Ages 70+ = 75 mL/min/1.73 sq.m. Chronic Kidney Disease: Less than 60 mL/min/1.73 square meters End Stage Renal Disease: Less than 15 mL/min/1.73 square meters XR SPINE LUMBAR W/OBLIQUES 4 VIEWSon 08-13-2023 XR SPINE LUMBAR W/OBLIQUES 4 VIEWS ORIGINAL EXAMINATION: 5 XRAY VIEWS OF THE LUMBAR SPINE08/10/2023 11:44 am LUMBAR SPINE W/ OBLIQUES COMPARISON: None HISTORY: ORDERING SYSTEM PROVIDED HISTORY: Reason for Exam: chronic low back pain with pain down right leg extending into toes not improved with conservative outpatient treatment FINDINGS: Levoconvex curvature. No pars defects visible. Multilevel disc height loss and marginal disc osteophytes seen. Moderate facet arthropathy. Calcified density in the pelvis could relate to a fibroid. Surgical clips in the right upper quadrant. Vascular calcifications noted. IMPRESSION: Levoconvex curvature with moderate multilevel degenerative changes. No compression deformities. Interpreted by: Luis Miguel Wasserman MD Preliminary Report By: Luis Miguel Wasserman MD Electronically signed By Luis Miguel Wasserman MD Dictated Date: 08/13/2023 1:24:34 PM Prelim Date: 08/13/2023 1:29:26 PM Sign Date: 08/13/2023 1:29:26 PM Ordering Provider: TOMMIE NEUMANN [facility] ([place]) CNCOon 02-13-2018 CNCO HNO ID: [id number] thor: Mammography CoordinatorService: (none)Author Type: PhysicianType: LetterFiled: 02/14/2018 11:31 PMNote Text:February 13, 2018 PID: [id number] Mitchell [address] [place] [id number] Ms. Mitchell,We are pleased to inform you that the results of your recent breastimaging exam on 02/13/2018 are normal and we recommend that you return toyour annual screening Mammography schedule.Your mammogram demonstrates that you have dense breast tissue, which couldhide abnormalities. Dense breast tissue, in and of itself, is arelatively common condition. Therefore, this information is not providedto cause undue concern; rather, it is to raise your awareness and promotediscussion with your health care provider regarding the presence of densebreast tissue in addition to other risk factors.Early detection of cancer is very important. We also understandrecommendations regarding breast cancer screening are controversial.Please discuss with your primary care provider which strategy is best foryou and whether a mammogram is right for you.Your imaging studies and report will be kept on file at as part of your permanent medical record and are available for yourcontinuing care.Thank you for allowing us to help in meeting your health care needs.Sincerely,Dr. RamosInterpreting RadiologistWooster Specialty Center(Return to Annual Mammogram schedule) Normal [facility] CNOVSPon 02-13-2018 CNOVSP Visit (SP[facility] MICHAEL CONCHITA JACK ([id number]) 1945 [facility] Time Provider Rqkjiilgge51/24/18 11:30 AM YANE MAN During your visit today, we recorded the following information about you: Temperature Pulse Blood pressure Weight 97.1 degrees 82/minute 174/74 58.3 kgDarbtrish Kessler Donovan, JESSICA.AVIATION TECHNICIAN 02/13/2018 11:46 AM SignedChief ComplaintPatient presents with:Established PatientHPI:Conchita Mitchell is a 72 year old female who presents here today for followup breast cancer.DX:Stage IIA, T2N0, infiltrating ductal carcinoma of the left breast s/plumpectomy, sentinel node biopsy followed by chemotherapy and Herceptin s/pradiation treatment to the left breast finished on 04/21/05. She has an ER/PRnegative tumor.? My right arm has hurt for the past month or so. I've been seeing achiropractor but that hasn't helped. I can't raise it up. No xrays have beendone.Denies injury.Pt. had R dx mammogram prior to this appt. today.?Appetite:good it just depends on the day. Energy level: I think it's good. Denies fever, chills or night sweats. Denies recent illness.Resp:denies cough or sobCardiac:denies chest pain/palpitationsGI:denies abd pain, n/v, moving bowels regularlyGU:denies dysuria/hematuriaExtrem:R arm/shoulder pain as above, denies pain elsewhereEndo:denies hot flashesNeuro:denies symptoms of neuropathySkin:denies rashes/lesionsHeme:denies bleeding?The ROS is otherwise negative.Past medical history, appointments, medications, allergies reviewed. No changes.EXAM:BP 174/74 Pulse 82 Temp 36.2 ?C (97.1 ?F) (Temporal Artery) Wt 58.3 kg(128 lb 8 oz) BMI 21.06 kg/m?APPEARANCE Well appearing, alert, in no acute distress, well-hydrated, wellnourished.HEART RRR with normal S1 and S2, no murmursLUNG clear to auscultationBREAST FEMALE R no mass/nodule, L no mass/nodule surgical defect to upper/outerLYMPH NODES No cervical lymphadenopathy, No supraclavicular lymphadenopathy andNo axillary lymphadenopathy.ABDOMEN bowel sounds normoactive, no bruits, soft, non-tender, non-distended,without organomegaly or palpable massesEXTREMITIES No edema, RUE limited rom d/t pain, difficult for pt. to raise Rarm during breast examNEURO Awake, alert and oriented x 3, Normal gait and No involuntary motions.SKIN Skin color, texture, turgor normal, no suspicious rashes or lesionsRADIOLOGY:Mammogram 02/01/18:IMPRESSION: INCOMPLETE: NEEDS ADDITIONAL IMAGING EVALUATIONThe asymmetry in the right breast is indeterminate. ?Additional views arerecommended.R dx mammogram 02/13/18:IMPRESSION: NEGATIVEAdditional views demonstrate this area to be similar in appearance dating backto 2014. ?No focal suspicious abnormality is seen.There is no mammographic evidence of malignancy.Return to annualmammogram screening schedule is recommended.ASSESSMENT/PLAN:1. Personal history of breast cancer - ICD9: V10.3, ICD10: Z85.3Stage IIA, T2N0, infiltrating ductal carcinoma of the left breast- No concerning findings on exam.- Pt. will be 13 years out from treatment at the end of this year.- Reviewed mammogram and dx mamm. with pt.- R shoulder xray today. Will call pt. with results.- Mammogram due in one year.- Follow up as needed. Pt. will follow up with PCP for yearly mammogram AND CBE.Pending R shoulder xray.- Pt. aware to call office with any questions/concerns.The patient indicates understanding of these issues and agrees with the plan.Yane Man APRN.CNPReferring Provider: YANE MAN [[id number]]Allergies As of Date: 02/13/2018 Noted Allergy ReactionSULFA (SULFONAMIDE ANTIBIOTICS) 02/22/2005 7 - Swelling 12 - Shortness of BreathDate Reviewed: 02/13/2018Reviewed by: Yane Man - Fully AssessedReason for Visit: Established Patient [175]Primary Visit Diagnosis:Personal history of breast cancer [Z85.3] Other Visit Diagnosis:Acute pain of right shoulder [M25.511]Order(s):XR SHOULDER NVZIGNT2F AP/TRUE AP RT [[id number]] Order #: [id number] FUTUREFollow-up and Disposition History RecordedPrescriptions as of 02/13/2018 Sig: VITAMIN D2 ORAL Take 1,000 Units by mouth onc*Problem List As Of Date 02/13/2018 Noted Resolved MALIGN NEOPL BREAST NEC [C50.919] INVALID FOR* OSTEOPOROSIS NOS [M81.0] INVALID FOR* Special Screening for Malignant Neoplasms, [place]*INVALID FOR* Benign Neoplasm of Colon [D12.6] INVALID FOR* Diverticulosis of Colon (without Mention of Hem*INVALID FOR* Personal history of breast cancer [Z85.3] INVALID FOR*Encounter Status:Closed by YANE MAN AVIATION TECHNICIAN on 02/13/18 Normal [facility] DIAGNOSTIC RTon 02-14-[address] [facility] DIAGNOSTIC RT * * *Final Report* * *DATE OF EXAM: Feb 13 2018 10:44AM [facility] 0626 - [facility] DIAGNOSTIC RT / REASON: Abnormal mammogram of right breast * * * * Physician Interpretation * * * *RESULT: #[id number] - [facility] DIAGNOSTIC RTUNILATERAL RIGHT DIGITAL DIAGNOSTIC MAMMOGRAM WITH CAD: 02/13/2018HISTORY: Abnormal Mammogram Of Right Breast /Call back/abnormal mamm: Right.RESULT:TECHNIQUE: The study was acquired using full field digital technology and interpreted from soft copy.Current study was also evaluated with a Computer Aided Detection (CAD).Comparison is made to exams dated: 02/01/2018 mammogram, 01/29/2017 mammogram, 12/29/2015 mammogram, 12/03/2014 mammogram, and 11/16/2014 mammogram - [facility].The tissue of the right breast is heterogeneously dense. This may lower the sensitivity of mammography.Additional imaging reveals area of interest in the right breast on prior exam is not reproduced and presumably represents superimposed breast tissue.No significant masses, calcifications, or other findings are seen in the breast.IMPRESSION: NEGATIVEAdditional views demonstrate this area to be similar in appearance dating back to 2014. No focal suspicious abnormality is seen.There is no mammographic evidence of malignancy.Return to annual mammogram screening schedule is recommended.Roque Ramos M.D.tab/srikanthrad:02/13/2018 11:08:12Imaging Technologist: Tayla CACERES (R)), [facility] Specialty Centerletter sent: Return to AnnualMammogram BI-RADS: 1 NegativeMultiple national specialty organizations have released breast cancer screening guidelines for women at average risk for developing breast cancer - guidelines that are based on both evidence and opinion, yet differ on when to start and how often to screen for breast cancer. With representation from Breast Imaging, Internal Medicine, Women's Health, Family Medicine, and Medical/Surgical Oncology, the has carefully reviewed the data and reached the following consensus:1) All women should engage in shared decision-making with their providers to decide when to start and how often to screen;2) All women should have the opportunity to start screening mammography at age 40;3) For women ages 45-55, we recommend annual screening mammograms;4) For women ages 55 and over, we support both the transition from an annual to a biennial interval if this aligns more with patient's values and preferences, or continuation with annual screening;5) All women should discuss with their providers when to stop screening mammograms.Bus Assistant: Tirso Date/Time: Feb 13 2018 10:26ADictated by: ROQUE RAMOS MDThis examination was interpreted and the report reviewed and electronically signed by: ROQUE RAMOS MD on Feb 13 2018 11:08AM [id number] Normal [facility] PROGRESSon 02-13-2018 Protein mass conc HNO ID: [id number] thor: Tayla Dailey RtService: (none)Author Type: (none)Type: Progress NotesFiled: 02/13/2018 2:53 PMNote Text: Radiology Service Progress NotePATIENT NAME: Conchita MitchellMRN: [id number] OF SERVICE: February 13, 2018TIME: 2:53 PMPATIENT IDENTITY VERIFICATION COMPLETED USING TWO (2) METHODS: Patientconfirmed name verbally and Date of .PATIENT GENDER DATA: Female. status: : NoBreastfeeding status: NO.PATIENT RELEVANT IMPLANT DATA REVIEWED: Not ApplicableRADIOLOGY DEPARTMENT: Women's Health RIGHTDIAGNOSTIC MAMMOGRAMPERIPHERAL IV DATA: Not applicableSIGNED BY: Tayla Dailey RtOctriver valley behavioral [facility] 2017 2:53 PM Normal [facility] Protein mass conc HNO ID: [id number] thor: Stella (RtJaden Berman: (none)Author Type: TechnicianType: Progress NotesFiled: 02/13/2018 11:57 AMNote Text: Radiology Service Progress NotePATIENT NAME: Conchita MitchellMRN: [id number] OF SERVICE: February 13, 2018TIME: 11:57 AMPATIENT IDENTITY VERIFICATION COMPLETED USING TWO (2) METHODS: Patientconfirmed name verbally and Date of .PATIENT GENDER DATA: Female. status: : NoBreastfeeding status: NO.PATIENT RELEVANT IMPLANT DATA REVIEWED: Not ApplicableRADIOLOGY DEPARTMENT: General X-ray: Exam(s) Completed: Upper ExtremityX-Ray(s): Shoulder, AP / TRUE AP right :PERIPHERAL IV DATA: Not applicableSIGNED BY: Mitali Gates 2017 11:57 AM Normal [facility] Protein mass conc HNO ID: [id number] thor: Yane Kay: (none)Author Type: Nurse PractitionerType: Progress NotesFiled: 02/13/2018 11:46 AMNote Text:Chief ComplaintPatient presents with:Established PatientHPI:Conchita Mitchell is a 72 year old female who presents here today forfollow up breast cancer.DX:Stage IIA, T2N0, infiltrating ductal carcinoma of the left breast s/plumpectomy, sentinel node biopsy followed by chemotherapy and Herceptins/p radiation treatment to the left breast finished on 04/21/05. She hasan ER/[place] negative tumor.? My right arm has hurt for the past month or so. I've been seeing achiropractor but that hasn't helped. I can't raise it up. No xrays havebeen done.Denies injury.Pt. had R dx mammogram prior to this appt. today.?Appetite:good it just depends on the day. Energy level: I think it's good. Denies fever, chills or night sweats. Denies recent illness.Resp:denies cough or sobCardiac:denies chest pain/palpitationsGI:denies abd pain, n/v, moving bowels regularlyGU:denies dysuria/hematuriaExtrem:R arm/shoulder pain as above, denies pain elsewhereEndo:denies hot flashesNeuro:denies symptoms of neuropathySkin:denies rashes/lesionsHeme:denies bleeding?The ROS is otherwise negative.Past medical history, appointments, medications, allergies reviewed. Nochanges.EXAM:BP 174/74 Pulse 82 Temp 36.2 ?C (97.1 ?F) (Temporal Artery) Wt58.3 kg (128 lb 8 oz) BMI 21.06 kg/m?APPEARANCE Well appearing, alert, in no acute distress, well-hydrated,well nourished.HEART RRR with normal S1 and S2, no murmursLUNG clear to auscultationBREAST FEMALE R no mass/nodule, L no mass/nodule surgical defect toupper/outerLYMPH NODES No cervical lymphadenopathy, No supraclavicularlymphadenopathy and No axillary lymphadenopathy.ABDOMEN bowel sounds normoactive, no bruits, soft, non-tender,non-distended, without organomegaly or palpable massesEXTREMITIES No edema, RUE limited rom d/t pain, difficult for pt. to raiseR arm during breast examNEURO Awake, alert and oriented x 3, Normal gait and No involuntarymotions.SKIN Skin color, texture, turgor normal, no suspicious rashes or lesionsRADIOLOGY:Mammogram 02/01/18:IMPRESSION: INCOMPLETE: NEEDS ADDITIONAL IMAGING EVALUATIONThe asymmetry in the right breast is indeterminate. ?Additional views arerecommended.R dx mammogram 02/13/18:IMPRESSION: NEGATIVEAdditional views demonstrate this area to be similar in appearance datingback to 2014. ?No focal suspicious abnormality is seen.There is no mammographic evidence of malignancy.Return to annualmammogram screening schedule is recommended.ASSESSMENT/PLAN:1. Personal history of breast cancer - ICD9: V10.3, ICD10: Z85.3Stage IIA, T2N0, infiltrating ductal carcinoma of the left breast- No concerning findings on exam.- Pt. will be 13 years out from treatment at the end of this year.- Reviewed mammogram and dx mamm. with pt.- R shoulder xray today. Will call pt. with results.- Mammogram due in one year.- Follow up as needed. Pt. will follow up with PCP for yearly mammogram ANDCBE. Pending R shoulder xray.- Pt. aware to call office with any questions/concerns.The patient indicates understanding of these issues and agrees with theplan.Yane Man APRN.AVIATION TECHNICIAN Normal [facility] XR SHOULDER 2V AP/TRUE AP RT on 02-13-2018 Protein mass conc * * *Final Report* * *DATE OF EXAM: Feb 13 2018 11:55AM WRX [id number] - XR SHOULDER 2V AP/TRUE AP RT / REASON: multiple diagnoses * * * * Physician Interpretation * * * * HISTORY: right shoulder pain with limited range of motion for 1.5 months. no injury.. Personal history of breast cancer Acute pain of right shoulder .TECHNIQUE: XR SHOULDER 2V AP/TRUE AP RT Laterality: RIGHT Number of different views (projections): 2COMPARISON: NoneRESULT:Bones are osteoporotic otherwise intact, no fracture. Degenerative remodeling of the AC joint otherwise unremarkable.IMPRESSION:Mild degenerative changes in the AC joint.Bus Assistant: MAURISIO Transcribe Date/Time: Feb 13 2018 10:20PDictated by : LULI JIM MDThis examination was interpreted and the report reviewed and electronically signed by: LULI JIM MD on Feb 13 2018 10:21PM [id number] Normal [facility] CNCOon 02-01-2018 CNCO HNO ID: [id number] thor: Mammography CoordinatorService: (none)Author Type: PhysicianType: LetterFiled: 02/04/2018 11:33 PMNote Text:February 01, 2018 PID: [id number] Osman [address] [place] [id number] Ms. Mitchell,Your recent breast imaging exam on 02/01/2018 showed a possible findingthat requires additional imaging studies for a complete evaluation. Mostsuch findings are probably benign (not cancer). Please call [phone] [phone] to schedule an appointment for youradditional imaging if you have not already done so.Your mammogram demonstrates that you have dense breast tissue, which couldhide abnormalities. Dense breast tissue, in and of itself, is arelatively common condition. Therefore, this information is not providedto cause undue concern; rather, it is to raise your awareness and promotediscussion with your health care provider regarding the presence of densebreast tissue in addition to other risk factors.Your breast images and report will be kept on file here as part of yourpermanent medical record and are available for your continuing care.Thank you for allowing us to help in meeting your health care needs.Sincerely,Dr. MalhotraInterpreting RadiologistWLinton Hospital and Medical Center (Additional imaging) Normal [facility] SCREENINGon 02-01-2018 [facility] SCREENING * * *Final Report* * *DATE OF EXAM: Feb 01 2018 9:08AM [facility]W 0581 - [facility] SCREENING / REASON: multiple diagnoses * * * * Physician Interpretation * * * *RESULT: #[id number] - [facility] SCREENINGBILATERAL DIGITAL SCREENING MAMMOGRAM WITH CAD: 02/01/2018HISTORY: Screening Mammogram - patient reports NO breast symptoms /priors available for comparison.RESULT:TECHNIQUE: The study was acquired using full field digital technology and interpreted from soft copy.Current study was also evaluated with a Computer Aided Detection (CAD).Comparison is made to exams dated: 01/29/2017 mammogram, 12/29/2015 mammogram, 12/03/2014 mammogram, and 11/16/2014 mammogram - [facility].The tissue of both breasts is heterogeneously dense. This may lower the sensitivity of mammography.There are post operative findings in the left breast.There is an asymmetry in the right breast posterior depth upper region seen on the mediolateral oblique view only.No other significant masses, calcifications, or other findings are seen in either breast.IMPRESSION: INCOMPLETE: NEEDS ADDITIONAL IMAGING EVALUATIONThe asymmetry in the right breast is indeterminate. Additional views are recommended.Ann Marie Penaloza/reinaldo:02/01/2018 11:05:55Imaging Technologist: Chacha TOMAS(Juan David)(M), [facility] Centerletter sent: Additional Imaging NeededMammogram BI-RADS: 0 Incomplete: needs additional imaging evaluationIf this report indicates you need additional imaging, and it has NOT yet been performed, please call , to schedule. We sincerely thank you for choosing the for your breast imaging needs.Multiple national specialty organizations have released breast cancer screening guidelines for women at average risk for developing breast cancer - guidelines that are based on both evidence and opinion, yet differ on when to start and how often to screen for breast cancer. With representation from Breast Imaging, Internal Medicine, Women's Health, Family Medicine, and Medical/Surgical Oncology, the has carefully reviewed the data and reached the following consensus:1) All women should engage in shared decision-making with their providers to decide when to start and how often to screen;2) All women should have the opportunity to start screening mammography at age 40;3) For women ages 45-55, we recommend annual screening mammograms;4) For women ages 55 and over, we support both the transition from an annual to a biennial interval if this aligns more with patient's values and preferences, or continuation with annual screening;5) All women should discuss with their providers when to stop screening mammograms.Bus Assistant: PenradTranscribe Date/Time: Feb 01 2018 8:26ADictated by: ANN MARIE MALHOTRA MDThis examination was interpreted and the report reviewed and electronically signed by: ANN MARIE MALHOTRA MD on Feb 01 2018 11:05AM [id number] Normal [facility] PROGRESSon 02-01-2018 Protein mass conc HNO ID: [id number] thor: Maribel Ji RtService: (none)Author Type: (none)Type: Progress NotesFiled: 02/01/2018 8:25 AMNote Text: Radiology Service Progress NotePATIENT NAME: Conchita MitchellN: [id number] OF SERVICE: February 01, 2018TIME: 8:25 AMPATIENT IDENTITY VERIFICATION COMPLETED USING TWO (2) METHODS: Patientconfirmed name verbally and Date of .PATIENT GENDER DATA: Female. status: : NoBreastfeeding status: NO.PATIENT RELEVANT IMPLANT DATA REVIEWED: Not ApplicableRADIOLOGY DEPARTMENT: Women's HealthPERIPHERAL IV DATA: Not applicableSIGNED BY: Maribel Ji RtOctober 2017 8:25 AM Normal [facility] Vital Signs Date Time Vital Sign Value Performing Clinician Francisi carola 09-14-2023 19:15-0400 Diastolic Blood Pressure Non-Invasive 62 mm[Hg] ROHIT BUI MD [facility] 09-14-2023 19:15-0400 Heart rate 71 /min ROHIT BUI MD [facility] 09-14-2023 19:15-0400 Systolic Blood Pressure Non-Invasive 128 mm[Hg] ROHIT BUI MD [facility] 09-14-2023 18:47-0400 Diastolic Blood Pressure Non-Invasive 69 mm[Hg] ROHIT BUI MD [facility] 09-14-2023 18:47-0400 Heart rate 71 /min ROHIT BUI MD [facility] 09-14-2023 18:47-0400 Systolic Blood Pressure Non-Invasive 133 mm[Hg] ROHIT BUI MD [facility] 09-14-2023 18:11-0400 Diastolic Blood Pressure Non-Invasive 68 mm[Hg] ROHIT BUI MD [facility] 09-14-2023 18:11-0400 Heart rate 71 /min ROHIT BUI MD [facility] 09-14-2023 18:11-0400 Respiratory rate 16 /min ROHIT BUI MD [facility] 09-14-2023 18:11-0400 Systolic Blood Pressure Non-Invasive 118 mm[Hg] ROHIT BUI MD [facility] 09-14-2023 17:13-0400 Respiratory rate 16 /min ROHIT BUI MD [facility] 09-14-2023 16:25-0400 Respiratory rate 16 /min ROHIT BUI MD [facility] 09-14-2023 16:10-0400 Heart rate 73 /min ROHIT BUI MD [facility] 09-14-2023 16:05-0400 Heart rate 70 /min ROHIT BUI MD [facility] 09-14-2023 16:00-0400 Heart rate 76 /min ROHIT BUI MD [facility] 09-14-2023 12:42-0400 Body weight 15.53 kg/m2 ROHIT BUI MD [facility] 09-14-2023 12:35-0400 Body height 166.4 cm ROHIT BUI MD [facility] 09-14-2023 12:35-0400 Body temperature 98.24 [degF] ROHIT BUI MD [facility] 09-14-2023 12:35-0400 Body weight 43 kg ROHIT BUI MD [facility] 09-14-2023 12:35-0400 Body weight 15.53 kg/m2 ROHIT BUI MD [facility] Encounters Encounter Date Encounter Type Care Provider Facility Start: 01-23-2024 End: 01-23-2024 Follow-up encounter FLACA SHUKLA SPLICER APPRENTICE-AVIATION TECHNICIAN [facility] Start: 11-06-2023 ambulatory ROHIT BUI MD Facil ity:B Start: 10-24-2023 ambulatory ROHIT BUI MD Facil ity:B Start: 09-14-2023 End: 09-14-2023 ambulatory TOMMIE NEUMANN SPLICER APPRENTICE - AVIATION TECHNICIAN Facility:A Start: 09-14-2023 End: 09-14-2023 SAME DAY STAY ROHIT BUI MD [facility] Start: 09-13-2023 ambulatory TOMMIE ARCE SPLICER APPRENTICE - AVIATION TECHNICIAN Facility:B Start: 08-31-2023 End: 08-31-2023 ambulatory NARDA GRACE MD Facility:B Start: 08-31-2023 End: 08-31-2023 Patient encounter procedure ROHIT BUI MD [facility] Start: 08-10-2023 End: 08-10-2023 ambulatory TOMMIE NEUMANN SPLICER APPRENTICE - AVIATION TECHNICIAN Facility:B Start: 08-10-2023 End: 08-10-2023 Patient encounter procedure TOMMIE NEUMANN SPLICER APPRENTICE - AVIATION TECHNICIAN [facility] Start: 02-13-2018 End: 02-14-2018 Patient encounter YANE (AVIATION TECHNICIAN) [facility] Start: 02-01-2018 End: 02-01-2018 Patient encounter YANE (AVIATION TECHNICIAN) [facility] Procedures Date Procedure Procedure Detail Performing Clinician Cholecystectomy ROHIT BUI MD Lumpectomy of breast ROHIT ASHLEY MD Comment on above: left Tonsil and adenoid s tructure (body structure) ROHIT BUI MD Immunizations Immunization Date Immunization Notes Care Provider Fa [facility] 01-15-2019 influenza virus vaccine, unspecified formulation TOMMIE NEUMANN SPLICER APPRENTICE - AVIATION TECHNICIAN [facility] Payers Date Payer Category Payer Unknown [id number] 1945 Unknown [id number] [id number] [id number] 1945 Unknown [id number] [id number] [id number] 1945 Unknown [id number] 2.16.8 [id number] 1943 Unknown [id number] 2.16.8 [id number] 1943 Unknown [id number] 2.16.8 [id number] 1943 Unknown [id number] 2.16.8 [id number] 1943 Unknown [id number] 2.16.8 [id number] Social History Date Type Detail Facility Start: 08-02-2023 Tobacco smoking status Ex-smoker (fi nding) [facility] Sex Assigned At Female [facility] Start: 09-14-2023 Tobacco smoking status Light t obacco smoker (finding) [facility] Functional Status Date Assessment Result Facility 09-14-2023 Functional Status Awake, Up ad janeth [facility] 09-14-2023 [facility] Status Room check performed [facility] 09-14-2023 Functional Status [facility] Mental Status Date Assessment Result Facility 09-14-2023 Mental Status Orientation Oriented x 4 [facility] 09-14-2023 Mental Status [facility] 09-14-2023 Mental Status [facility] 09-14-2023 Mental Status [facility] Evaluation + Plan note 09-18-2023 Radiology Note Date & Type Note Facility 09-18-2023 Evaluation + Plan note Future Scheduled TestsCT Angio Abd/Pelvis/Bilat Lower Extrem 09/18/23 [facility] Hospital Discharge instructions 09-14-2023 Note Date & Type Note Facility 09-14-2023 Hospital Discharg e instructions Patient Education 09/14/2023 19:24:11 Moderate Conscious Sedation, Adult, Care After Moderate Conscious Sedation, Adult, Care After These instructions provide you with information about caring for yourself after your procedure. Your health care provider may also give you more specific instructions. Your treatment has been planned according to current medical practices, but problems sometimes occur. Call your health care provider if you have any problems or questions after your procedure. What can I expect after the procedure? After your procedure, it is common: To feel sleepy for several hours. To feel clumsy and have poor balance for several hours. To have poor judgment for several hours. To vomit if you eat too soon. Follow these instructions at home: For at least 24 hours after the procedure: Do not: ?Participate in activities where you could fall or become injured. ?Drive. ?Use heavy machinery. ?Drink alcohol. ?Take sleeping pills or medicines that cause drowsiness. ?Make important decisions or sign legal documents. ?Take care of children on your own. Rest. Eating and drinking Follow the diet recommended by your health care provider. If you vomit: ?Drink water, juice, or soup when you can drink without vomiting. ?Make sure you have little or no nausea before eating solid foods. General instructions Have a responsible adult stay with you until you are awake and alert. Take utxq-yxo-eujzqan and prescription medicines only as told by your health care provider. If you smoke, do not smoke without supervision. Keep all follow-up visits as told by your health care provider. This is important. Contact a health care provider if: You keep feeling nauseous or you keep vomiting. You feel light-headed. You develop a rash. You have a fever. Get help right away if: You have trouble breathing. This information is not intended to replace advice given to you by your health care provider. Make sure you discuss any questions you have with your health care provider. Document Released: 01/28/2014 Document Revised: 03/22/2018 Document Reviewed: 07/29/2016 [employer] Patient Education 2020 [employer]. 09/14/2023 19:21:35 3- Peripheral angioplasty//stent 05/2019 PERIPHERAL ANGIOPLASTY/STENTING Discharge Instructions This information has been developed to provide you with written guidelines to supplement the verbal instructions your doctor has reviewed with you. It is very important that you follow any additional instructions your doctor has provided. Home instructions: An adult must stay with you overnight. Relax for 24 hours Drink plenty of fluids to flush out your kidneys. Resume your regular diet. Keep a left arm straight with arm board and bandage on for 24 hours Avoid strenuous exercise of lifting anything over 10 pounds for at least 2 days. Do not take a shower for at least 24 hours. No soaking for 1 week no tub baths, swimming, or hot tubs. You may not drive for 3 days Discomfort, swelling and bruising are expected at the incision site. Watch the area where the catheter was inserted for such things as, but not limited to: redness, swelling, pus or red streaks running down the arm. If any concerns, notify our office at . If bleeding is noted through the bandage: Lie flat and apply pressure for 10 to 15 minutes. If the bleeding does not stop, or if your hand feels numb, cold or turns blue, go to the Emergency Department immediately. If you do not have an arranged appointment, please call the office upon discharge at and make an appointment to see the doctor in 2 weeks. If you have concern after regular office hours, you can reach the doctor by calling . Follow all instructions given to you by your doctor Follow Up Care 09/13/2023 12:02:53 With:ROHIT BUI MD, [facility], Surgery, Vascular Surgeons Address: [facility] [address] [place] [id number] When: Unknown Comments:Follow-up as scheduled [facility] Summary of episode note 09-14-2023 Note Date & Type Note Facility 09-14-2023 Summary of episod e note Discharge Instructions Thank you for allowing [facility] to assist you with your healthcare needs. The following is important discharge information regarding your hospital visit. Your Care Team TOMMIE NEUMANN SPLICER APPRENTICE - AVIATION TECHNICIAN What to do next Scheduled Follow-Up Appointments Appointment Type When With Where Contact Information StatusEcho - Echocardiogram Adult 09/18/2023 10:00 AM EDT [facility] [phone] Angio Abd/Pelvis/Bilat Lower Extrem 09/18/2023 04:00 PM EDT [facility] [phone] Confirmed PC OV Follow Up 09/21/2023 01:00 PM EDT TOMMIE NEUMANN SPLICER APPRENTICE - AVIATION TECHNICIAN [facility] Confirmed Follow Up Appointments Follow Up with ROHIT BUI MD, [facility], Surgery, Vascular Surgeons Where:[facility] [address] [facility] [address] [place] [address] Additional Information: Follow-up as scheduled The Following Activity and Diet Have Been Ordered for You Discharge Activity - Ordered -- Follow the post-operative/post-procedure activity instructions provided by your physician's office., 09/14/23 17:16:00 EDT Discharge Diet - Ordered -- Follow the post-operative/post-procedure diet instructions provided by your physician's office., 09/14/23 17:16:00 EDT The Following Equipment Has Been Ordered for You Discharge Home Equipment Discharge Wound Care - Ordered -- kep left arm straight and do not bend for 24 hours and keep on arm board, 09/14/23 17:16:00 EDT Allergies sulfa drugs Facial swelling Medications Please ask your primary doctor or pharmacist before taking any other medication not listed, including over the counter drugs, herbal medications, vitamins and or supplements as they may interact with your home medications. What How Much When Why Instructions Last Dose Unchanged acetaminophen (Tylenol 8 Hour 650 mg oral tablet, extended release) 2 tab(s) by mouth Every 8 hours as needed for as needed for pain Unchanged aspirin (aspirin 81 mg oral delayed release tablet) 1 tab(s) by mouth Every day Unchanged clopidogrel (Plavix 75 mg oral tablet) 1 tab(s) by mouth Once a day Duration: 30 Days D/ c Omeprazole Unchanged ramipril (ramipril 5 mg oral capsule) 1 cap by mouth Every day HTN, goal below 140/90 Duration: 30 Days Unchanged rosuvastatin (rosuvastatin 5 mg oral tablet) 1 tab(s) by mouth Once a day Hyperlipidemia LDL goal <100 Duration: 30 Days Please take this list to your next doctor s visit. Bring all medications you take, including over the counter medications, herbals and other supplements with you to your doctor s visit. Patients and families are reminded to discard old lists and to update any records with all medication providers or retail pharmacies. Education Materials Moderate Conscious Sedation, Adult, Care After These instructions provide you with information about caring for yourself after your procedure. Your health care provider may also give you more specific instructions. Your treatment has been planned according to current medical practices, but problems sometimes occur. Call your health care provider if you have any problems or questions after your procedure. What can I expect after the procedure? After your procedure, it is common: To feel sleepy for several hours. To feel clumsy and have poor balance for several hours. To have poor judgment for several hours. To vomit if you eat too soon. Follow these instructions at home: For at least 24 hours after the procedure: Do not: ? Participate in activities where you could fall or become injured. ? Drive. ? Use heavy machinery. ? Drink alcohol. ? Take sleeping pills or medicines that cause drowsiness. ? Make important decisions or sign legal documents. ? Take care of children on your own. Rest. Eating and drinking Follow the diet recommended by your health care provider. If you vomit: ? Drink water, juice, or soup when you can drink without vomiting. ? Make sure you have little or no nausea before eating solid foods. General instructions Have a responsible adult stay with you until you are awake and alert. Take mbtc-hub-oykncdj and prescription medicines only as told by your health care provider. If you smoke, do not smoke without supervision. Keep all follow-up visits as told by your health care provider. This is important. Contact a health care provider if: You keep feeling nauseous or you keep vomiting. You feel light-headed. You develop a rash. You have a fever. Get help right away if: You have trouble breathing. This information is not intended to replace advice given to you by your health care provider. Make sure you discuss any questions you have with your health care provider. Document Released: 01/28/2014 Document Revised: 03/22/2018 Document Reviewed: 07/29/2016 [employer] Patient Education 2020 [employer] PERIPHERAL ANGIOPLASTY/STENTING Discharge Instructions This information has been developed to provide you with written guidelines to supplement the verbal instructions your doctor has reviewed with you. It is very important that you follow any additional instructions your doctor has provided. Home instructions: An adult must stay with you overnight. Relax for 24 hours Drink plenty of fluids to flush out your kidneys. Resume your regular diet. Keep a left arm straight with arm board and bandage on for 24 hours Avoid strenuous exercise of lifting anything over 10 pounds for at least 2 days. Do not take a shower for at least 24 hours. No soaking for 1 week no tub baths, swimming, or hot tubs. You may not drive for 3 days Discomfort, swelling and bruising are expected at the incision site. Watch the area where the catheter was inserted for such things as, but not limited to: redness, swelling, pus or red streaks running down the arm. If any concerns, notify our office at . If bleeding is noted through the bandage: Lie flat and apply pressure for 10 to 15 minutes. If the bleeding does not stop, or if your hand feels numb, cold or turns blue, go to the Emergency Department immediately. If you do not have an arranged appointment, please call the office upon discharge at and make an appointment to see the doctor in 2 weeks. If you have concern after regular office hours, you can reach the doctor by calling . Follow all instructions given to you by your doctor Additional Information VACCINATE! IT SAVES LIVES! Members of the community who have not yet received the COVID-19 vaccine and would like to receive it can visit one of [facility] vaccine clinics. There are many vaccine clinic locations within the [facility]. For locations and available times, please visit [email or web address] It is important to note that some COVID mobile vaccine clinics are held outdoors and may be canceled in rainy or stormy conditions. To learn more about pediatric vaccinations (ages 5-11), we invite you to visit the [facility] webpage. [email or web address]/pages/[email or web address]-Dppgn-Smokgzapwkr-Frequently-Asked -Questions.html To learn more about the COVID-19 vaccine, we invite you to visit the CDC website for a list of frequently asked questions.https://www.cdc.gov/coronavi debbi/2019-ncov/vaccines/faq.html [employer] Patient Portal Access Instructions: Stay connected with your healthcare team and access your personal medical information anytime with the [employer] Patient Portal. Please follow the directions below to create your [employer] account: 1.Access the email account you provided upon registration to the hospital/physician office.2.Look for an invitation email from [facility].3.Open the email and access the invitation link: Accept Invitation to [facility].4.Fill in the required patrick to create your account. To access your account, visit [email or web address]. Click the blue button labeled Access Patient Portal and then log in with the username and password that you created in the steps above. You will be able to view your test results, lab results, a summary of your visits, upcoming appointments and more. There is also a convenient messaging option where you can send secure messages to your provider. In addition, you will have the ability to download any documents or summaries to your computer and/or send the information securely to a physician. Remember that your healthcare information is confidential, so carefully consider who you will allow to register on the [facility] [employer] Patient Portal for access to your information. You can also access the [facility] Patient Portal on the [facility] karon. Simply click on Patient Portal and then log into your account. If you would like to receive a full copy of your medical records, please contact the [facility] Medical Records Department by calling [phone], Sunday through Sunday between 8 a.m. and 4:30 p.m. HOW TO SAFELY DISPOSE OF PRESCRIPTION MEDICATIONS Please use one of the following methods to safely dispose of your unused medications. 1.Use a drug disposal kit: the drug disposal pouch allows you to safely discard your old and unused drugs. Ask your nurse to give you one when you are discharged.2.Visit a local take-back location: Many local pharmacies and police departments have programs that collect old and unwanted prescription drugs. Call your local pharmacy or go to http://bit.[employer]/6U7Tv5a to find one close to you.3.Make use of household items: Use cat litter or old coffee grounds to dispose medications if other options are not available. Mix your drugs with these household products, seal them in an airtight container and throw it into the garbage. Call [facility]: [phone] to be sure your drugs can be disposed of in this way. Some medicines may require a different approach.4.Never flush your medications down the toilet. IF YOU HAVE BEEN PRESCRIBED AN OPIOID FOR PAIN If you have been prescribed an opioid (such as hydrocodone, oxycodone or morphine), it is critical to understand the possible side effects and risks of opioid pain medications. Even when taken as directed, opioids can have several side effects including: Tolerance, meaning you might need to take more of a medication for the same pain relief. Nausea, vomiting and/or constipation. Sleepiness, dizziness, dry mouth, confusion, depression or itching. Physical dependence, meaning you have withdrawal symptoms when a medication is stopped, can develop within a few days. KNOW YOUR RESPONSIBILITIES It is important to know exactly how much and how often to take the opioid pain medications you are prescribed. Never take opioids in higher amounts or more often than prescribed. Do not combine opioids with alcohol or other drugs that cause drowsiness, such as benzodiazepines, also known as benzos, including diazepam and alprazolam, muscle relaxants or sleep aids. Never sell or share prescription opioids. This is illegal. Store opioids in a secure place and out of reach of others (including children, family, friends and visitors). The last page of this document has been signed and retained as a CHART COPY. Signatures Patient Education Materials Moderate Conscious Sedation, Adult, Care After 3- Peripheral angioplasty//stent 05/2019 Medication Leaflets My discharge plan and instructions have been reviewed and explained to me and I,CONCHITA MITCHELL understand my current condition and have read and understand these discharge instructions. I have received a written copy of the plan/instructions. If I have questions, I am aware that I should contact my doctor. 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 [facility] Evaluation + Plan note Note Date & Type Note Facility Evaluation + Plan note Future Appointments Appointment Date:08/28/2023 09:00:00 AM Scheduled Provider:TOMMIE NEUMANN APRN, CNP Location:[facility] Appointment Type:PC OV Follow Up [facility] Evaluation + Plan note LaboratoryRadiology Note Date & Type Note Facility Evaluation + Plan note Future Appointments Appointment Date:09/21/2023 01:00:00 PM Scheduled Provider:TOMMIE NEUMANN APRN, CNP Location:[facility] Appointment Type:PC OV Follow Up Future Scheduled TestsComplete Blood Count 08/28/23Lipid Profile 08/28/23Complete Metabolic Panel 08/28/23CT Angio Abd/Pelvis/Bilat Lower Extrem 08/28/23 [facility] Evaluation + Plan note LaboratoryRadiology Note Date & Type Note Facility Evaluation + Plan note Future Appointments Appointment Date:09/18/2023 10:00:00 AM Scheduled Provider: Location:[facility] Appointment Type:Echo - Echocardiogram Adult Appointment Date:09/18/2023 04:00:00 PM Scheduled Provider: Location:[facility] Appointment Type:CT Angio Abd/Pelvis/Bilat Lower Extrem Appointment Date:09/21/2023 01:00:00 PM Scheduled Provider:TOMMIE NEUMANN APRN, CNP Location:[facility] Appointment Type:PC OV Follow Up Future Scheduled TestsComplete Blood Count 08/28/23Lipid Profile 08/28/23Complete Metabolic Panel 08/28/23CT Angio Abd/Pelvis/Bilat Lower Extrem 09/18/23 [facility] Hospital course Narrative Note Date & Type Note Facility Hospital course Narrative No data available for this section [facility] Hospital Discharge instructions Note Date & Type Note Facility Hospital Discharge instructions No data available for this section [facility] Progress note Note Date & Type Note Facility Progress note No data available for this section [facility] Summary Purpose Family History No Family History Records Found No data available for this section No data available for this section No data available for this section No data available for this section No Family History Records Found No data available for this section Advance Directives No Advanced Directives Records FoundNo Advanced Directives Records Found Additional Source Comments INFORMATION SOURCE (unrecogn ized section and content) DATE CREATED AUTHOR 2018 [facility] DATE CREATED AUTHOR AUTHOR'S ORGANJACQUES ATION 11/10/2023 [facility] ([place]) Patient Care team informatio n (unrecognized section and content) Care Team Personnel Name: TOMMIE NEUMANN SPLICER APPRENTICE - AVIATION TECHNICIAN Position: P4 Advanced Tile Molder Hand Member Role: Primary Care Physician Address: Address: [address] [place] [address] Care Team Related Persons Name: JANINA MITCHELL Care Team Personnel Name: TOMMIE NEUMANN SPLICER APPRENTICE - AVIATION TECHNICIAN Position: P4 Advanced Tile Molder Hand Member Role: Primary Care Physician Address: Address: [address] [place] [address] Care Team Related Persons Name: JANINA MITCHELL Care Team Personnel Name: TOMMIE NEUMANN SPLICER APPRENTICE - AVIATION TECHNICIAN Position: P4 Advanced Tile Molder Hand Member Role: Primary Care Physician Address: Address: [address] [place] [address] Care Team Related Persons Name: JANINA MITCHELL Care Team Personnel Name: TOMMIE NEUMANN SPLICER APPRENTICE - AVIATION TECHNICIAN Position: P4 Advanced Tile Molder Hand Member Role: Primary Care Physician Address: Address: [address] [place] [address] Care Team Related Persons Name: JANINA MITCHELL Care Team Personnel Name: TOMMIE NEUMANN SPLICER APPRENTICE - AVIATION TECHNICIAN Position: P4 Advanced Tile Molder Hand Member Role: Primary Care Physician Address: Address: [address] [place] [address] Care Team Related Persons Name: JANINA MITCHELL FOR RECORDS PERTAINING TO PATIENTS WHO ARE OR HAVE BEEN ENROLLED IN A CHEMICAL DEPENDENCY/SUBSTANCEABUSE PROGRAM, SOME INFORMATION MAY BE OMITTED. This clinical summary was aggregated from multiple sources. Caution should be exercised in using it in the provision of clinical care. This summary normalizes information from multiple sources, and as a consequence, information in this document may materially change the coding, format and clinical context of patient data. In addition, data may be omitted in some cases. CLINICAL DECISIONS SHOULD BE BASED ON THE PRIMARY CLINICAL RECORDS. [facility] [employer] [facility]. provides no warranty or guarantee of the accuracy or completeness of information in this document.
== END | disposition home or self-care (01) ==
LOC: CVS 09:53
PROVIDERS: PCP Nurse Practitioner Family; Referring Provider Physician Assistant; Visit Provider Physician Assistant
DX: Z48.812 Encounter for surgical aftercare following surgery on the circulatory system (principal)
CPT/HCPCS: 93922; 93926

== ENCOUNTER → 2024-07-09 | Outpatient (CLI) | payer MEDICARE, SELFPAY ==
--- NOTE | 2024-07-09 09:47 | ADUL_ITS ---
Reason For Study Reason For Study: S/P fem-pop bypass Right Velocities Ext. Iliac Artery, dist = 67.7 cm./sec. Common Femoral Artery, prox = 591.5 cm./sec. Common Femoral Artery, mid = 652.5 cm./sec. Common Femoral Artery, dist = 131.2 cm./sec. Right Fem-Pop Bypass, --No flow throughout, vessel size is diminished. Profunda Femoral Artery = 91.3 cm./sec. Popliteal Artery, prox. = 34.6 cm./sec. Popliteal Artery, mid = 50.7 cm./sec. Popliteal Artery, dist = 43.6 cm./sec. Post. Tibial Artery, prox = 20.6 cm./sec. Post. Tibial Artery, mid = 20.6 cm./sec. Post. Tibial Artery, dist = 23.7 cm./sec. Peroneal Artery, prox = 11.5 cm./sec. Peroneal Artery, mid = 12.7 cm./sec. Peroneal Artery,dist = 16.7 cm./sec. Ant. Tibial Artery, prox = 37.9 cm./sec. Ant. Tibial Artery, mid = 29.4 cm./sec. Ant. Tibial Artery, dist = 28.9 cm./sec. Procedure Exam performed in department. Preliminary report given to Mckenzie TERRY. /US Art Duplex Unilat Lower Ext Interpretation Summary Right common femoral artery with >70% stenosis. Femoral-popliteal bypass occluded. Ordering Physician: Zoey Wong Referring Physician: Raudel Nance Performed By: Edie Villalba RVT
--- NOTE | 2024-07-09 09:47 | ART_ITS ---
Reason For Study Reason For Study: S/P fem-pop bypass Procedure A bilateral lower extremity continuous wave Doppler with analog waveform analysis and ankle brachial indexes. Left Segmental Pressures Left brachial= 138mmHg. Left posterior tibial artery = 51mmHg. Left dorsalis pedis artery = 47mmHg. The left dorsalis pedis waveforms are monophasic. The left posterior tibial artery waveforms are monophasic. Right Segmental Pressures Right brachial= 133mmHg. Right posterior tibial artery = 52mmHg. Right dorsalis pedis artery = 41mmHg. The right dorsalis pedis waveforms are monophasic. The right posterior tibial artery waveforms are monophasic. Indices The right ankle brachial index by the dorsalis pedis is 0.30. The right ankle brachial index by the posterior tibial artery is 0.38. The left ankle brachial index by the dorsalis pedis is 0.34. The left ankle brachial index by the posterior tibial artery is 0.37. VL/Ankle Brachial Index Interpretation Summary Right BRYNN 0.38, severe arterial insufficiency. Doppler/PVR waveforms of the rig ht ankle severely diminished at rest. Left BRYNN 0.37, severe arterial insufficiency. Doppler/PVR waveforms of the left ankle severely diminished at rest. Ordering Physician: Zoey Wong Referring Physician: Raudel Nance Performed By: Edie Villalba RVT
== END | disposition home or self-care (01) ==
PROVIDERS: PCP Nurse Practitioner Family; Referring Provider Physician Assistant; Visit Provider Physician Assistant
DX: Z48.812 Encounter for surgical aftercare following surgery on the circulatory system (principal); I77.9 Disorder of arteries and arterioles, unspecified; Z95.820 Peripheral vascular angioplasty status with implants and grafts
CPT/HCPCS: 93922; 93926

== ENCOUNTER 2024-08-05 13:20 | Outpatient (CLI) | payer MEDICARE, SELFPAY ==
--- NOTE | 2024-08-05 13:25 | CT_ITS ---
PROCEDURE: CTA ABD W/RUNOFF W/WO CONTRAST 08/05/2024 REASON FOR EXAM: PAD WITH HX REVASCULARIZATION, NEW SYMPTOMS Right foot pain. TECHNIQUE: CTA imaging of the abdomen, pelvis, and lower extremities with intravenous contrast. Coronal and Sagittal reconstruction series were provided. 3D, 3D post processing, 3D reconstructions, Maximum intensity projection (MIPs) Volume rendering and Shaded surface rendering was provided. CONTRAST: Isovue 370 VOLUME: 100 mL One or more dose reduction techniques were used (e.g., Automated exposure control, adjustment of the mA and/or kV according to patient size, use of iterative reconstruction technique). RADIATION DOSE SUMMARY: CTDlvol: 7.5 mGy DLP: 909.2 mGycm COMPARISON: None FINDINGS: Aorta: Mild mixed calcified and soft plaque identified. 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 Mural thrombus is seen. Celiac: Mild nonocclusive plaque at the origin. SMA: Mild narrowing at the origin. LJ : Not visualized. Right Renal: Nonobstructive plaque at its origin. Tiny nonobstructive calculus in the upper pole calyx of the right kidney. Left Renal: Nonobstructive plaque at its origin. RIGHT Iliac Arteries: Common Iliac: There is patency. Moderate degree of calcific plaque with a focal areas of stenosis. External Iliac: Patent. Surgical clips are seen in the right groin. This most likely is secondary to prior intervention. There is evidence of a 5.8 cm by 2.4 cm fluid collection overlying the right groin most likely secondary to prior interventional procedures. Internal Iliac: Mild mixed calcified and soft plaque identified. LEFT Iliac Arteries: Common Iliac: Intraluminal filling defect seen in its proximal portion most likely representing thrombus. External Iliac: Patent with areas of moderate stenosis. Tiny intraluminal filling defects. Surgical clips are seen overlying the left groin. Internal Iliac: Mild mixed calcified and soft plaque identified. RIGHT Lower Extremity: Common Femoral: Moderate mixed calcified and soft plaque identified. No high grade stenosis. Superficial Femoral: Occluded. Deep Femoral: Mild mixed calcified and soft plaque identified. Popliteal: Reconstituted in the midportion of the right knee joint. Anterior Tibial: Patent Tibioperoneal Trunk: Patent Posterior Tibial: Patent Peroneal: Patent Dorsalis Pedis: Not opacified. LEFT Lower Extremity: Common Femoral: Moderate mixed calcified and soft plaque identified. No high grade stenosis. Superficial Femoral: Occluded at its origin. Deep Femoral: Moderate mixed calcified and soft plaque identified. No high grade stenosis. Popliteal: Reconstitution in its midportion. Anterior Tibial: Patent Tibioperoneal Trunk: Patent Posterior Tibial: Patent Peroneal: Patent Dorsalis Pedis: Not opacified. Other Findings: Mild linear atelectasis at the lung bases. Coronary artery calcification. Diffuse fatty infiltration of the liver. Status post cholecystectomy. Mild degree of bilateral hydronephrosis. 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 Intraluminal filling defect in the left common iliac artery extending to the le ft external iliac artery. Three-vessel runoff in both lower extremities. Reading Location: [place] [id number]
== END 2024-08-05 23:59 | disposition home or self-care (01) ==
LOC: CT 13:22
PROVIDERS: PCP Nurse Practitioner Family; Referring Provider Physician Assistant; Visit Provider Physician Assistant
DX: I70.235 Atherosclerosis of native arteries of right leg with ulceration of other part of foot (principal); L97.519 Non-pressure chronic ulcer of other part of right foot with unspecified severity; I74.09 Other arterial embolism and thrombosis of abdominal aorta; M79.671 Pain in right foot; Z98.62 Peripheral vascular angioplasty status
CPT/HCPCS: 75635; Q9967; A4216

== ENCOUNTER 2024-08-18 08:35 | Day surgery (SDC) | payer MEDICARE, SELFPAY ==
--- NOTE | 2024-08-14 08:52 | PAT.ANE_ITS ---
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 When Was Last Pacemaker Check QUESTION #4 FULL TEXT: You/Your Family Experience fever (hyperthermia) with Anesthesia Last Oral Intake Last Oral intake: Last Oral Intake NPO since Meds taken in AM with sips of water? Meds patient instructed to take am of surgery PONV PONV - boiler welder: PONV - boiler welder Female Yes 08/14/24 08:07 HX of Motion Sickness No 08/14/24 08:07 HX of N/V After Surgery No 08/14/24 08:07 Non-Smoker Yes 08/14/24 08:07 Duration of Surgery greater Yes 08/14/24 08:07 than 60 minutes Number of Risk Factors 3 08/14/24 08:07 PONV Score Moderate Risk 08/14/24 08:07 Height & Weight Height & Weight: Anesthesia: Height & Weight Height 5 ft 5.5 in 01/28/24 10:39 Respiratory Assessment Respiratory Assessment - boiler welder: Respiratory Tract Infection Hx - boiler welder Hx Respiratory Tract Infection No 08/14/24 08:07 STOP Sleep Apnea STOP Sleep Apnea - boiler welder: STOP Sleep Apnea - boiler welder Hx Hypertension No: PATIENT STATE 08/14/24 08:07 HYPOTENSION Hx Sleep Apnea No 08/14/24 08:07 CPAP BIPAP Do you snore loudly (louder No 08/14/24 08:07 than talking or can be heard Do you often feel tired/ No 08/14/24 08:07 fatigued/ sleepy during daytime? Has anyone observed you stop No 08/14/24 08:07 breathing during sleep? STOP Results Negative 08/14/24 08:07 QUESTION #5 FULL TEXT : Do you snore loudly (louder than talking or can be heard through closed doors)? 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 Specify any problems Hx of Preganancy in last 3 N/A 08/14/24 08:07 Months Nurse Filling Out Transfusion NBUCHER 08/14/24 08:07 & Questions: Date: 08/14/24 08/14/24 08:07 Time: 08:09 08/14/24 08:07 Patient unable to answer at this time (ie. 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 Breast CA (~2003) Home Medications ?Medication ?Instructions ?Recorded ?Last Taken ?Type aspirin 81 mg tablet,delayed 81 mg PO DAILY HEART HEAL TH 11/05/23 01/14/24 03:00 History release clopidogrel 75 mg tablet (Plavix) 75 mg PO DAILY BLOOD THINNER 11/05/23 01/14/24 03:00 History ramipril 5 mg tablet 5 mg PO 1545 BP 11/05/23 History rosuvastatin 5 mg tablet 5 mg PO 1545 CHOLESTEROL 01/13/24 History cilostazol 50 mg tablet 50 mg PO BID #60 tabs Unknown Rx Allergy/AdvReac Type Severity Reaction Status Date / Time Sulfa (Sulfonamide Allergy Severe Swelling Verified 08/14/24 08:03 Antibiotics) (sulfa drugs) Family History Other Cancer Heart disease Surgical History (Updated 08/14/24 @ 08:10 by Melvi Mcdermott) History of femoropopliteal bypass (01/14/24) Hx of colonoscopy Hx of tubal ligation History of lumpectomy of left breast Hx of cholecystectomy Social History Smoking Status: Former smoker Tobacco: How many years used: 35 Audit: Pertinent Findings Pertinent Findings EKG Perinent findings: January 10, 2024. Normal sinus rhythm Stress test pertinent findings: December 14, 2023. Ejection fraction 80%. No fixed or reversible perfusion defects. Additional pertinent findings: Carotid duplex November 16, 2023. 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
[2024-08-14 11:03] LABS: Hematocrit 32.8 % (37-47); Hemoglobin 9.7 g/dL (12.0-15.0); Mean Corp Hgb Conc 29.6 g/dL (32-36); Mean Corpuscular Hgb 21.9 pg (27.0-32.0); Mean Platelet Vol. 10.6 fl (6.2-12.0); Platelet Count 487 K/mm3 (150-450); RBC Distribution Width CV 17.2 % (11.6-14.6); RBC Distribution Width SD 45.7 fl (35.1-43.9); Red Blood Count 4.43 M/mm3 (4.2-5.4); White Blood Count 10.6 K/mm3 (4.4-11.0)
[2024-08-14 11:49] LABS: Anion Gap 13 (5-15); BUN 12 mg/dL (4-19); BUN/Creat Ratio 17.4 RATIO (10-20); Calcium,Total 9.8 mg/dL (7.6-11.0); Carbon Dioxide 19.8 mmol/L (21.0-32.0); Chloride 106 mmol/L (98-108); Creatinine, Serum 0.68 mg/dL (0.70-1.20); EST Glomerular Filtration Rate 87 (>60); Glucose 108 mg/dL (70-99); Potassium 3.4 mmol/L (3.3-5.1); Sodium Level 138 mmol/L (133-145)
--- NOTE | 2024-08-15 11:25 | PAT.ANE_ITS ---
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 When Was Last Pacemaker Check QUESTION #4 FULL TEXT: You/Your Family Experience fever (hyperthermia) with Anesthesia Last Oral Intake Last Oral intake: Last Oral Intake NPO since Meds taken in AM with sips of water? Meds patient instructed to take am of surgery PONV PONV - clinical trials systems administrator: PONV - clinical trials systems administrator Female Yes 08/14/24 08:07 HX of Motion Sickness No 08/14/24 08:07 HX of N/V After Surgery No 08/14/24 08:07 Non-Smoker Yes 08/14/24 08:07 Duration of Surgery greater Yes 08/14/24 08:07 than 60 minutes Number of Risk Factors 3 08/14/24 08:07 PONV Score Moderate Risk 08/14/24 08:07 Height & Weight Height & Weight: Anesthesia: Height & Weight Height 5 ft 5.5 in 01/28/24 10:39 Respiratory Assessment Respiratory Assessment - clinical trials systems administrator: Respiratory Tract Infection Hx - clinical trials systems administrator Hx Respiratory Tract Infection No 08/14/24 08:07 STOP Sleep Apnea STOP Sleep Apnea - clinical trials systems administrator: STOP Sleep Apnea - clinical trials systems administrator Hx Hypertension No: PATIENT STATE 08/14/24 08:07 HYPOTENSION Hx Sleep Apnea No 08/14/24 08:07 CPAP BIPAP Do you snore loudly (louder No 08/14/24 08:07 than talking or can be heard Do you often feel tired/ No 08/14/24 08:07 fatigued/ sleepy during daytime? Has anyone observed you stop No 08/14/24 08:07 breathing during sleep? STOP Results Negative 08/14/24 08:07 QUESTION #5 FULL TEXT : Do you snore loudly (louder than talking or can be heard through closed doors)? 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 Specify any problems Hx of Preganancy in last 3 N/A 08/14/24 08:07 Months Nurse Filling Out Transfusion NBUCHER 08/14/24 08:07 & Questions: Date: 08/14/24 08/14/24 08:07 Time: 08:09 08/14/24 08:07 Patient unable to answer at this time (ie. 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 Breast CA (~2003) Home Medications ?Medication ?Instructions ?Recorded ?Last Taken ?Type aspirin 81 mg tablet,delayed 81 mg PO DAILY HEART HEAL TH 11/05/23 01/14/24 03:00 History release clopidogrel 75 mg tablet (Plavix) 75 mg PO DAILY BLOOD THINNER 11/05/23 01/14/24 03:00 History ramipril 5 mg tablet 5 mg PO 1545 BP 11/05/23 History rosuvastatin 5 mg tablet 5 mg PO 1545 CHOLESTEROL 01/13/24 History cilostazol 50 mg tablet 50 mg PO BID #60 tabs Unknown Rx Allergy/AdvReac Type Severity Reaction Status Date / Time Sulfa (Sulfonamide Allergy Severe Swelling Verified 08/14/24 08:03 Antibiotics) (sulfa drugs) Family History Other Cancer Heart disease Surgical History (Updated 08/14/24 @ 08:10 by Melvi Mcdermott) History of femoropopliteal bypass (01/14/24) Hx of colonoscopy Hx of tubal ligation History of lumpectomy of left breast Hx of cholecystectomy Social History Smoking Status: Former smoker Tobacco: How many years used: 35 Audit: Pertinent Findings HISTORY of Pertinent Findings History of Pertinent Findings: EKG Pertinent Findings EKG Perinent findings January 10, 2024. Normal 08/14/24 09:01 sinus rhythm Stress Test Pertinent Findings Stress test pertinent findings December 14, 2023. Ejection 08/14/24 09:01 fraction 80%. No fixed or reversible perfusion defects . Additional Pertinent Findings Additional pertinent findings Carotid duplex November 16, 2023 08/14/24 09:01 . 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 Hemoglobin was 9.7. This is low but acceptable for surgery. Recommendation Anesthesia Recommendation Anesthesia recommendation: OPTIMIZED for anesthesia
[2024-08-18] VITALS (8 sets, daily range): BP systolic 87–140; BP diastolic 41–63; PULSE 72–87; RESP 16–20; TEMP 36.2–37.6; O2SAT 92–98; BMI 17.8
[2024-08-18] MEDS: Lactated Ringers 1,000 ML 15 ML IV (09:23)
--- NOTE | 2024-08-18 09:28 | PCM.PRE.AN2 ---
ASA Classification* ASA Classification ASA Classification: 3 Assessment & Plan Anesthesia* Anesthesia Assessment Anesthesia Assessment: Discussed sedation and/or anesthesia options, risks, benefits, and alternatives with patient/parents/legal guardian/POA. Questions invited. The patient/parents/legal guardian/POA seems to understand and agrees to proceed with anesthesia plan. Reviewed the physical assessment, medical history, allergy history and patient home medications list prior to surgery/procedure/anesthetic and documented any changes. Performed airway and anesthesia risk assessments. Anesthesia Type Anesthesia Type: MAC Anesthesia Focused Assessment* Temperature: 98.0 F Pulse Rate: 87 Blood Pressure: 126/56 Respiratory Rate: 18 Pulse Ox: 98 Airway Assessment Mouth opens: >3 cm Mallampati Score: II Focused Labs Anesthesia Preop lab: CBC WBC 10.6 K/mm3 (4.4-11.0) 08/14/24 10:08/14/24 RBC 4.43 M/mm3 (4.2-5.4) 08/14/24 10:08/14/24 Hgb 9.7 g/dL (12.0-15.0) L 08/14/24 10:08/14/24 Hct 32.8 % (37-47) L 08/14/24 10:08/14/24 Plt Count 487 K/mm3 (150-450) H 08/14/24 10:08/14/24 CHEMISTRY Potassium 3.4 mmol/L (3.3-5.1) 08/14/24 10:08/14/24 Sodium 138 mmol/L (133-145) 08/14/24 10:08/14/24 Magnesium 2.3 mg/dL (1.6-2.6) 01/11/24 08:01/11/24 BUN 12 mg/dL (4-19) 08/14/24 10:08/14/24 Creatinine 0.68 mg/dL (0.70-1.20) L 08/14/24 10:08/14/24 Glucose 108 mg/dL (70-99) H 08/14/24 10:08/14/24 POC Glucose 70 mg/dL (74-106) L 01/14/24 06:32 01/14/24 COAG PT 14.1 SECONDS (11.7-14.9) 01/14/24 06:55 01/14/24 Pre-Assessment Diagnosis/Proposed Procedure Planned Operative Procedure(s): AORTAGRAM WITH RUNOFF, WITH POSSIBLE INTERVENTION VIA BRACHIAL CUT DOWN (IN STEEL PLATE CAULKER W/ANESTHESIA, OR STAFF, AVTAR) Anesthesia History Anesthesia History - spine surgeon: Anesthesia History - spine surgeon Hx Hospitalization No 08/14/24 08:07 Any Problems With Anesthesia Yes: SLOW TO AWAKEN 08/14/24 08:07 Cholinesterase deficiency No 08/14/24 08:07 You/Your Family Experience No 08/14/24 08:07 fever (hyperthermia) with Relationship Recent Exposure to Contagious No 08/18/24 09:07 Disease Does patient have nerve No 08/14/24 08:07 stimulator Patient instructed to have device shut off --Does patient have Pacemaker No 08/18/24 09:07 or ICD? When Was Last Pacemaker Check QUESTION #4 FULL TEXT: You/Your Family Experience fever (hyperthermia) with Anesthesia Last Oral Intake Last Oral intake: Last Oral Intake NPO since 09:00 08/18/24 09:07 Meds taken in AM with sips of Yes 08/18/24 09:07 water? Meds patient instructed to take am of surgery PONV PONV - spine surgeon: PONV - spine surgeon Female Yes 08/14/24 08:07 HX of Motion Sickness No 08/14/24 08:07 HX of N/V After Surgery No 08/14/24 08:07 Non-Smoker Yes 08/14/24 08:07 Duration of Surgery greater Yes 08/14/24 08:07 than 60 minutes Number of Risk Factors 3 08/14/24 08:07 PONV Score Moderate Risk 08/14/24 08:07 Height & Weight Height & Weight: Anesthesia: Height & Weight Height 5 ft 5.5 in 08/18/24 09:07 Weight: 49.4 kg 08/18/24 09:07 Body Mass Index (BMI) 17.8 08/18/24 09:07 Respiratory Assessment Respiratory Assessment - spine surgeon: Respiratory Tract Infection Hx - spine surgeon Hx Respiratory Tract Infection No 08/14/24 08:07 STOP Sleep Apnea STOP Sleep Apnea - spine surgeon: STOP Sleep Apnea - spine surgeon Hx Hypertension No: PATIENT STATE 08/14/24 08:07 HYPOTENSION Hx Sleep Apnea No 08/14/24 08:07 CPAP BIPAP Do you snore loudly (louder No 08/14/24 08:07 than talking or can be heard Do you often feel tired/ No 08/14/24 08:07 fatigued/ sleepy during daytime? Has anyone observed you stop No 08/14/24 08:07 breathing during sleep? STOP Results Negative 08/14/24 08:07 QUESTION #5 FULL TEXT : Do you snore loudly (louder than talking or can be heard through closed doors)? 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 Specify any problems Hx of Preganancy in last 3 N/A 08/14/24 08:07 Months Nurse Filling Out Transfusion NBUCHER 08/14/24 08:07 & Questions: Date: 08/14/24 08/14/24 08:07 Time: 08:09 08/14/24 08:07 Patient unable to answer at this time (ie. confused, unrespo /Reproduction History /Reproductive History - spine surgeon: /Reproductive Hx- spine surgeon Hx Now No 08/14/24 08:07 Gestational Age (in weeks): EDC: Hx Hx Para Hx Section SAB No 08/14/24 08:07 Active Medications Active Medications: Current Medications Generic Name Dose Route Start Last Admin Trade Name Freq PRN Reason Stop Dose Admin Lactated Ringer's 1,000 mls @ 15 mls/hr 08/18/24 09:00 08/18/24 09:23 IV 15 mls/hr .Q48H PORSCHE Administration PFSH Medical History Chronic osteomyelitis with draining sinus, right ankle and foot Wears glasses Post-menopausal Blackout Former smoker Leg cramps History of stress test 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 Breast CA (~2003) Home Medications ?Medication ?Instructions ?Recorded ?Last Taken ?Type aspirin 81 mg tablet,delayed 81 mg PO DAILY HEART HEALTH 11/05/23 08/18/24 History release clopidogrel 75 mg tablet (Plavix) 75 mg PO DAILY BLOOD THINNER 11/05/23 08/18/24 History ramipril 5 mg tablet 5 mg PO 1545 BP 11/05/23 08/17/24 History rosuvastatin 5 mg tablet 5 mg PO 1545 CHOLESTEROL 11/05/23 08/17/24 History cilostazol 50 mg tablet 50 mg PO BID #60 tabs 08/01/24 08/18/24 Rx Allergy/AdvReac Type Severity Reaction Status Date / Time Sulfa (Sulfonamide Allergy Severe Swelling Verified 08/18/24 09:06 Antibiotics) (sulfa drugs) Family History Other Cancer Heart disease Surgical History History of femoropopliteal bypass (01/14/24) Hx of colonoscopy Hx of tubal ligation History of lumpectomy of left breast Hx of cholecystectomy Social History Smoking Status: Former smoker Tobacco: How many years used: 35 Review of Systems (Anesthesia) ROS Narrative System reviewed and no additional complaints, except as documented.
--- NOTE | 2024-08-18 10:50 | PCM.HP.BLA ---
History and Physical Allergies Sulfa (Sulfonamide Antibiotics) (sulfa drugs) Allergy (Severe, Verified 08/08/24 10:13) Swelling Medications ?Medication ?Instructions ?Recorded ?Confirmed ?Type aspirin 81 mg tablet,delayed 81 mg PO DAILY HEART HEALTH 11/05/23 08/08/24 History release clopidogrel 75 mg tablet (Plavix) 75 mg PO DAILY BLOOD THINNER 11/05/23 08/08/24 History ramipril 5 mg tablet 5 mg PO 1545 BP 11/05/23 08/08/24 History rosuvastatin 5 mg tablet 5 mg PO 1545 CHOLESTEROL 11/05/23 08/08/24 History oxycodone 5 mg tablet 5 mg PO Q8H PRN pain 7 days #21 01/15/24 08/08/24 Rx tabs cilostazol 50 mg tablet 50 mg PO BID #60 tabs 08/01/24 08/08/24 Rx rivaroxaban 2.5 mg tablet (Xarelto) 2.5 mg PO BID #60 tabs 08/01/24 08/08/24 Rx Is last menstrual period known: No Post menopausal: Yes Patient : No Have you fallen in the past year?: No PFSH Medical History Chronic osteomyelitis with draining sinus, right ankle and foot 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 Recall that she had R common femoral artery endarterectomy and R fem-pop bypass with cadaver GSV 01/14/2024 performed at the time due to gangrenous R great toe requiring amputation. She had R great toe amputation on 01/14/24 as well. Fortunately, this R great toe amputation site did subsequently heal. Recall she'd also previously had R iliac stent by Dr. Dejesus. Unfortunately, surveillance imaging 07/09/24 demonstrated occluded fem-pop bypass; L BRYNN 0.37 and R BRYNN 0.38 with monophasic waveforms throughout. She has had recurrent rest pain into her R toes/forefoot; her R first toe has had increased dusky appearance; other toes have also had dusky discoloration to a lesser extent. Fortunately, no recurrent wound to this point. She does not have any LLE rest pain or wounds. At last visit, started pletal 50mg BID which she is so far tolerating well; she has noticed maybe small improvement in discomfort but not much yet. Xarelto 2.5mg BID was prescribed but this is unaffordable for her. She has continued ASA and Plavix. ROS General General: Yes fatigue, breast cancer and weakness; No weight change, appetite or colon cancer HEENT HEENT: No difficulty swallowing, eye injury, eye surgery, swollen glands or hoarseness Endo Endocrine: Yes cold intolerance; No thyroid disease, diabetes mellitus, thyroid cancer, Hair loss or heat intolerance Skin Skin: No rash or changing moles Musc Musculoskeletal: No back problems, arthritis, rheumatoid arthritis, gout or joint pain Cardio Cardiovascular: No murmur, pacemaker, heart disease, atrial fibrillation, high blood pressure, heart attack, heart stent, palpitations, shortness of breath with exertion or chest pain Psych Psychiatric: No depression, anxiety or hearing voices Resp Respiratory: No shortness of breath, No sleep apnea, No cough, No COPD, No asthma, No emphysema and No wheezing Gastro Gastrointestinal: No abdominal pain, No nausea or vomiting, Yes diarrhea, Yes constipation, No blood in stool, No acid reflux, No hemorrhoids, No ulcers, No gallbladder problem and No black,tarry stools Michael Hematologic: Yes blood thinners, No blood disorders, No bleeding, No anemia and No blood clots Neuro Neurologic: No system reviewed and no additional complaints, except as documented, No as per HPI, No abnormal gait, No abnormal hearing, No abnormal movements, No abnormal speech, No behavioral changes, Yes burning sensations, No confusion, No convulsions, No disequilibrium, No dizziness, No localized weakness, No frequent falls, No headache(s), No lack of coordination, No loss of vision, No memory loss, No numbness, No other visual disturbances, No radicular pain, No restless legs, No sensory deficit, No syncope, No tingling, No tremor(s), Yes weakness and No other Exam Const General: cooperative, comfortable and no acute distress Nutritional Appearance: thin Orientation: alert, awake and oriented x3 HENMT Head: normal to inspection, normocephalic and atraumatic Ears: hearing grossly normal bilaterally and external ears normal Nose: external nose normal Eyes General: appearance normal, both eyes and all related structures EOM: EOM intact bilaterally Neck Neck: normal visual inspection and trachea midline Carotids: bruit Resp Effort & Inspection: normal respiratory effort, able to speak in complete sentences, no audible wheezes, not labored, no respiratory distress, no stridor and no use of accessory muscles Auscultation: clear to auscultation bilaterally Cardio Rate: regular rate Rhythm: regular rhythm Bruits: carotid bruit Pulses: brachial pulses present and radial pulses present Skin General: no rashes or lesions noted Wounds: no wounds Neuro General: moves all extremities, no focal motor deficits and CN's II-XI intact bilaterally Speech: speech normal Extremities Pulses: Normal: Right Radial Pulse and Left Radial Pulse and Absent: Right Dorsalis Pedis Pulse (monophasic doppler signal), Left Dorsalis Pedis Pulse (monophasic doppler signal), Right Posterior Tibial Pulse (monophasic doppler signal) and Left Posterior Tibial Pulse (monophasic doppler signal) Lower Extremity Edema: None: Bilateral Additional Details: Motor and sensory function intact. R great toe amputation stump with cyanotic discoloration, tips of all other toes with cyanotic discoloration; stable and slightly improved from last visit. No wounds. Psych Appearance: grossly normal Mental Status: mental status grossly normal Mood: congruent mood Affect: normal affect Speech and Movement: speech and movement normal Attitude: cooperative Judgment: judgment good Coding Level of Care Code Off vis,est,level 3 Diagnoses PAOD (peripheral arterial occlusive disease) I77.9 History of revascularization procedure of lower extremity Z98.62 Assessment and Plan Assessment and Plan (1) PAOD (peripheral arterial occlusive disease): Status: Acute (2) History of revascularization procedure of lower extremity: Status: Acute Plan -right iliac angioplasty, brachial access
--- NOTE | 2024-08-18 13:15 | EX.PCM.DISCH ---
Discharge Instructions Diet Discharge Diet: No restrictions Activity May shower in (days): 2 Lifting Restrictions: do not lift > 20 lbs with left arm for 14 days Additional Activity Instructions:: do not submerge incision for 14 days Dressing / Incision Call your doctor if your incision/area has: Sudden Increased Bleeding, Increased Pain/ Swelling, Increased Redness and Foul Smelling Discharge Call your doctor if you observe: Fever of 101 or Higher, Coldness, Increased Pain and Numbness or Tingling Remove Dressing in: 2 days Cleanse incision/area with: Soap & Water Follow Up Care Test Results: Test results from this visit will be discussed in further detail at your follow-up appointment, if applicable. Discharge Plan Admission Attending Provider: Harris Saxena Primary Care Provider: Raudel Nance NP Instructions Print Language: Polish Discharge Orders/Prescriptions Prescriptions: New oxycodone 5 mg tablet 5 mg PO Q8H PRN (Reason: pain) 1 Days Qty: 3 0RF Continued clopidogrel [Plavix] 75 mg tablet 75 mg PO DAILY aspirin 81 mg tablet,delayed release (DR/EC) 81 mg PO DAILY ramipril 5 mg tablet 5 mg PO 1545 rosuvastatin 5 mg tablet 5 mg PO 1545 cilostazol 50 mg tablet 50 mg PO BID Qty: 60 1RF Referrals / Follow Up: Raudel Nance CONING MACHINE OPERATOR, CONING MACHINE OPERATOR-C [Primary Care Provider] - Disposition Disposition (needs filled in before D/C Order can be placed): Home, Self Care
--- NOTE | 2024-08-18 13:19 | PCM.OPRPT ---
Operative Report (Standard) Operative Information Date of Procedure: 08/18/24 Pre-Operative Diagnosis: atherosclerosis with rest pain, right lower extremity Post-Operative Diagnosis: same Surgery/Procedure Performed: thoracic aortogram abdominal aortogram IVUS right profunda, common femoral artery, external iliac artery, common iliac artery, aorta program director/air personality: Yes Line Crew Supervisor: Ariadne Drake Tasks completed by occupational therapist's assistant: Opening, Closing, Opening & closing and Hemostasis: Electrocautery Type of Anesthesia: Local MAC, Local and MAC RN Documented Start/Stop Times: Operation Date: 08/18/24 11:00 Case Time Into Pre-Op 08/18/24 08:51 Out of Pre-Op 08/18/24 10:55 Into Recovery 08/18/24 13:28 Out of Recovery 08/18/24 14:00 Into Phase II Recovery 08/18/24 14:02 Out of Phase II 08/18/24 14:45 Procedure Start Time: 11:45 Procedure Stop Time: 13:20 Select all DRAINS/GRAFTS/IMPLANTS that apply: None Estimated Blood Loss: 8 Specimen collected: No Description of surgery: HPI: Patient is an 79-year-old female with multiple right lower extremity revascularization attempts most recently a right femoral endarterectomy and a pre-existing distal external iliac artery stent. Her surveillance duplex revealed significant stenosis in the distal external iliac artery in the mid common femoral artery so she is taken now for angiogram with possible intervention. Given the distal extent of the area of stenosis brachial access was our planned approach and given her generally small vessels a brachial cutdown will be performed to obtain access. Description of procedure: Upon obtaining form consent and verification correct patient procedure site patient was taken to the Oncology Consultant where she was positioned prepped and draped in usual sterile fashion. Time was performed and moderate sedation administered by anesthesia. Skin overlying the left brachial artery was anesthetized with 1% lidocaine and transverse incision made 1 fingerbreadth superior to the antecubital crease. Bovie was used to dissect through subcutaneous tissue and self-retaining retractors put in position. Once the brachial artery was visualized sharp dissection was used to dissect free proximal and distal and a right angle was used to place a vessel loop. The patient was then heparinized and allowed to circulate for 3 minutes with subsequent dosing based on ACT results. Using micropuncture needle wire we accessed the brachial artery and then exchanged out for micropuncture sheath. Through the micropuncture sheath a Bentson wire was advanced navigating into the ascending aorta. The micropuncture sheath was then exchanged for a 5 Maldivian sheath and through this a pigtail catheter advanced into the ascending aorta. From this position arch and thoracic aortogram was performed and we then navigated into the descending thoracic aorta with the catheter and Bentson wire. Once the catheter was advanced into the abdominal aorta digital subtraction aortogram pelvic angiogram was performed. This confirmed satisfactory positioning and also confirmed the stenosis of the right distal external iliac artery and common femoral artery. There also appeared to be stenosis of the proximal aspect of the common iliac artery which we plan to further assess with intravascular ultrasound. The Bentson wire was then readvanced and the catheter and short 5 Maldivian sheath exchanged for a 5 Maldivian 90 Rabie sheath. Using an angled quick cross catheter and the Bentson wire we navigated into the right iliac system Bentson wire and catheter ultimately into the profundofemoral artery. The Bentson wire was then withdrawn and hand-injection subtraction angiography performed revealing satisfactory positioning with no extravasation or dissection. Through the catheter a 014 [place] core wire was advanced and the catheter was then withdrawn. An intravascular ultrasound probe was then advanced and recorded pullback performed of the right profunda, right common femoral, right external iliac, right common iliac arteries and aorta. This confirmed greater than 75% stenosis tandem lesions and diffuse stenosis of the distal external iliac artery and common femoral artery. This also showed a focal 30% stenosis of the common iliac artery which we did not intend to treat. The ultrasound catheter was withdrawn and a 5 mm x 40 [employer] angio sculpt balloon advanced and centered in the lesion and inflated for multiple inflations. The balloon was then deflated withdrawn and repeat angiography revealed satisfactory lesion response with no extravasation or dissection and no residual stenosis. Next a Bard Amparo tonics 5 x 40 angioplasty balloon was advanced and inflated to nominal for 2 minutes covering the entirety of the lesion and then deflated and withdrawn. Completion angiography revealed satisfactory response with no extravasation or dissection or residual stenosis. Wires and catheters then withdrawn followed by removal of the 5 Maldivian sheath after which the brachial artery was occluded with Vesseloops. The puncture site was then repaired with a 6-0 Prolene U-stitch with satisfactory hemostasis observed. There was a palpable radial pulse at the wrist and normal Doppler signal in the brachial artery. Heparin was then reversed with protamine and incision closed with 3-0 Vicryl followed by 4 Monocryl and Dermabond for the skin. The patient was then taken to the PACU with plan discharged to home. Surgical Findings: see above Complications Complications: No
--- NOTE | 2024-08-18 13:27 | PCM.POST.ANE ---
Anesthesia: Postop Eval I Current Vital Signs Temperature: 99.6 F Pulse Rate: 77 Blood Pressure: 87/53 Respiratory Rate: 20 Pulse Ox: 95 Assessment Airway patent: Yes Spontaneous unlabored respirations: Yes nausea: No Vomiting: No Anesthesia Complication: No Fluid Hydration Crystalloid volume administer (ml): 1,000 Total IV fluid infused: 1,000 Progress Note Anesthesia document: Postop Eval 1 completed: Yes
--- NOTE | 2024-08-18 14:02 | POSTOPAN2_ITS ---
Anesthesia Postop Eval I Sum Postop Eval Completion status Anesthesia document: Postop Eval 1 completed: Yes Anesthesia Postop Eval I Summary Anesthesia Postop Eval I Summary: Anesthesia Postop Eval I: Assessment Summary Airway patent Yes 08/18/24 13:27 CERAMIC CHEMIST.CSIR Spontaneous unlabored Yes 08/18/24 13:27 CERAMIC CHEMIST.CSIR respirations Mental status nausea No 08/18/24 13:27 CERAMIC CHEMIST.CSIR Vomiting No 08/18/24 13:27 CERAMIC CHEMIST.CSIR Anesthesia Postop Eval I: Fluid Summary Crystalloid volume administer 1,000 08/18/24 13:27 CERAMIC CHEMIST.CSIR (ml) Colloids volume administered ( ml) Blood Product volume administered (ml) Total IV fluid infused 1,000 08/18/24 13:27 CERAMIC CHEMIST.CSIR Anesthesia Postop Eval I: Summary Notes Anesthesia Complication No 08/18/24 13:27 CERAMIC CHEMIST.CSIR Anesthesia Complication Comment: Post-operative progress note Anesthesia: Postop Eval II Evaluation Mental status: Awake Pain Level: 0 nausea: No Vomiting: No
--- NOTE | 2024-08-18 14:02 | PCM.POSTANE2 ---
Anesthesia Postop Eval I Sum Postop Eval Completion status Anesthesia document: Postop Eval 1 completed: Yes Anesthesia Postop Eval I Summary Anesthesia Postop Eval I Summary: Anesthesia Postop Eval I: Assessment Summary Airway patent Yes 08/18/24 13:27 CERTIFIED PHARMACIST ASSISTANT.CSIR Spontaneous unlabored Yes 08/18/24 13:27 CERTIFIED PHARMACIST ASSISTANT.CSIR respirations Mental status nausea No 08/18/24 13:27 CERTIFIED PHARMACIST ASSISTANT.CSIR Vomiting No 08/18/24 13:27 CERTIFIED PHARMACIST ASSISTANT.CSIR Anesthesia Postop Eval I: Fluid Summary Crystalloid volume administer 1,000 08/18/24 13:27 CERTIFIED PHARMACIST ASSISTANT.CSIR (ml) Colloids volume administered ( ml) Blood Product volume administered (ml) Total IV fluid infused 1,000 08/18/24 13:27 CERTIFIED PHARMACIST ASSISTANT.CSIR Anesthesia Postop Eval I: Summary Notes Anesthesia Complication No 08/18/24 13:27 CERTIFIED PHARMACIST ASSISTANT.CSIR Anesthesia Complication Comment: Post-operative progress note Anesthesia: Postop Eval II Evaluation Mental status: Awake Pain Level: 0 nausea: No Vomiting: No
[2024-08-18 17:38] LABS: ACT Activated Clotting Time 176 sec (74-137)
== END 2024-08-18 14:45 | disposition home or self-care (01) ==
LOC: SDC 08:35 → AC 08:36
PROVIDERS: PCP Nurse Practitioner Family; Referring Provider Surgery Trauma Surgery; Visit Provider Surgery Trauma Surgery
DX: I70.221 Atherosclerosis of native arteries of extremities with rest pain, right leg (principal); Z79.02 Long term (current) use of antithrombotics/antiplatelets; Z79.82 Long term (current) use of aspirin; Z79.899 Other long term (current) drug therapy; Z87.891 Personal history of nicotine dependence; Z98.62 Peripheral vascular angioplasty status; Z89.411 Acquired absence of right great toe; Z87.39 Personal history of other diseases of the musculoskeletal system and connective tissue
CPT/HCPCS: 01500; 36200; 36415; 37220; 37252; 37253; 75605; 75625; 80048; 85027; 85347; A4648; C1725; C1753; C1769; C1887; C1894; C2623; Q9967

== ENCOUNTER → 2024-09-05 | Outpatient (CLI) | payer MEDICARE, SELFPAY ==
[2024-09-05 11:52] LABS: Hematocrit 29.2 % (37-47); Hemoglobin 8.8 g/dL (12.0-15.0); Mean Corp Hgb Conc 30.1 g/dL (32-36); Mean Corpuscular Hgb 21.6 pg (27.0-32.0); Mean Corpuscular Volume 71.7 fL (81-99); Mean Platelet Vol. 10.2 fl (6.2-12.0); Platelet Count 555 K/mm3 (150-450); RBC Distribution Width CV 16.6 % (11.6-14.6); RBC Distribution Width SD 42.3 fl (35.1-43.9); Red Blood Count 4.07 M/mm3 (4.2-5.4); White Blood Count 10.5 K/mm3 (4.4-11.0)
== END | disposition home or self-care (01) ==
LOC: LAB 10:55
PROVIDERS: PCP Nurse Practitioner Family; Referring Provider Physician Assistant; Visit Provider Physician Assistant
DX: D64.9 Anemia, unspecified (principal)
CPT/HCPCS: 36415; 85027

== ENCOUNTER → 2024-09-19 | Outpatient (CLI) | payer MEDICARE, SELFPAY ==
--- NOTE | 2024-09-19 09:30 | ART_ITS ---
Reason For Study Reason For Study: PVD, s/p EIA/ANESTHESIOLOGISTS' ASSISTANT angioplasty Procedure A bilateral lower extremity continuous wave Doppler with analog waveform analysis,segmental pressures,and ankle brachial indexes without exercise. Left Segmental Pressures Left brachial= 140mmHg. Left high thigh = 57mmHg. Left low thigh = 73mmHg. Left calf = 45mmHg. Left posterior tibial artery = 45mmHg. Left dorsalis pedis artery = 37mmHg. The left dorsalis pedis waveforms are monophasic. The left posterior tibial artery waveforms are monophasic. Right Segmental Pressures Right brachial= 133mmHg. Right high thigh = 117mmHg. Right low thigh = 104mmHg. Right calf = 64mmHg. Right posterior tibial artery = 68mmHg. Right dorsalis pedis artery = 66mmHg. The right dorsalis pedis waveforms are monophasic. The right posterior tibial artery waveforms are monophasic. Indices The right ankle brachial index by the dorsalis pedis is 0.49. The right ankle brachial index by the posterior tibial artery is 0.47. The left ankle brachial index by the dorsalis pedis is 0.32. The left ankle brachial index by the posterior tibial artery is 0.26. . Preliminary report given to Nazanin KATZ. VL/Lower Ext Art Exam w/o Exercis Interpretation Summary Right BRYNN 0.49, severe arterial insufficiency. Doppler/PVR waveforms and segmen flo pressures reveal aorto-iliac, distal SFA/popliteal. Left BRYNN 0.32, severe arterial insufficiency. Doppler/PVR waveforms and segment al pressures reveal aorto-iliac, distal SFA/popliteal disease Ordering Physician: Zoey Wong Referring Physician: Raudel Nance Performed By: Edie Villalba RVT
== END | disposition home or self-care (01) ==
LOC: CVS 09:29
PROVIDERS: PCP Nurse Practitioner Family; Referring Provider Physician Assistant; Visit Provider Physician Assistant
DX: I77.9 Disorder of arteries and arterioles, unspecified (principal); Z98.62 Peripheral vascular angioplasty status; Z48.812 Encounter for surgical aftercare following surgery on the circulatory system
CPT/HCPCS: 93923

== ENCOUNTER → 2025-03-27 | Outpatient (CLI) | payer MEDICARE, SELFPAY ==
--- NOTE | 2025-03-27 09:57 | ART_ITS ---
Reason For Study Reason For Study: S/P Rt EIA / PHOTOGRAPHIC AIDE Angio Procedure A bilateral lower extremity continuous wave Doppler with analog waveform analysis,segmental pressures,and ankle brachial indexes without exercise. Left Segmental Pressures Left high thigh = 77mmHg. Left low thigh = 66mmHg. Left calf = 58mmHg. Left posterior tibial artery = 63mmHg. Left dorsalis pedis artery = 47mmHg. The left posterior tibial artery waveforms are monophasic. The left dorsalis pedis waveforms are monophasic. Right Segmental Pressures Right brachial= 135mmHg. Right high thigh = 109mmHg. Right low thigh = 108mmHg. Right calf = 70mmHg. Right posterior tibial artery = 69mmHg. Right dorsalis pedis artery = 70mmHg. Indices The right ankle brachial index by the posterior tibial artery is 0.51. The right ankle brachial index by the dorsalis pedis is 0.52. The left ankle brachial index by the posterior tibial artery is 0.47. The left ankle brachial index by the dorsalis pedis is 0.35. VL/Lower Ext Art Exam w/o Exercis Interpretation Summary Right BRYNN 0.52, moderate arterial insufficiency. Doppler/PVR waveforms and segm ental pressures reveal aorto-iliac, distal SFA/popliteal disease. Left BRYNN 0.47, severe arterial insufficiency. Doppler/PVR waveforms and segment al pressures reveal aorto-iliac disease. Ordering Physician: Zoey Wong Referring Physician: Raudel Nance Performed By: Nuno Zhao, RVT
== END | disposition home or self-care (01) ==
LOC: CVS 09:54
PROVIDERS: PCP Nurse Practitioner Family; Referring Provider Physician Assistant; Visit Provider Physician Assistant
DX: Z48.812 Encounter for surgical aftercare following surgery on the circulatory system (principal); Z98.62 Peripheral vascular angioplasty status; I77.9 Disorder of arteries and arterioles, unspecified
CPT/HCPCS: 93923